=== PATIENT | male | born 1985 | race Caucasian/White ===

== ENCOUNTER 2016-04-19 15:47 | Emergency (ER) | payer SELFPAY ==
--- NOTE | 2016-04-19 16:09 | ER Document Report ---
ED Medical Screen (RME) - General Stated Complaint: ALCOHOL WITHDRAW Time seen by provider: 16:04 Notes: Patient sent to the emergency room from a local urgent care for further evaluation of withdrawal from alcohol. Patient states his last drink was one malt beverage yesterday. Patient is having shakiness, and has a headache. Patient complains of nausea, no vomiting. I have greeted and performed a rapid initial assessment of this patient. A comprehensive ED assessment and evaluation of the patient, analysis of test results and completion of the medical decision making process will be conducted by additional ED providers. TRAVEL OUTSIDE OF THE [place] IN LAST 30 DAYS: No - Related Data Allergies/Adverse Reactions: No Known Allergies Allergy (Verified 04/19/16 16:08) Past Medical History - Immunizations Hx Diphtheria, Pertussis, Tetanus Vaccination: No Physical Exam - Cardiovascular Rhythm: Regular Heart sounds: Normal auscultation
--- NOTE | 2016-04-19 16:55 | ER Document Report ---
ED General - General Mode of Arrival: Ambulatory Information source: Patient TRAVEL OUTSIDE OF THE [place] IN LAST 30 DAYS: No - HPI Onset: Other - see above Quality of pain: No pain Severity: None Associated symptoms: None Recently seen / treated by doctor: Yes <BAKARI GREENWOOD - Last Filed: 04/19/16 19:21> <RICKABRAHAM URSULA - Last Filed: 04/19/16 22:55> - General Chief Complaint: Alcohol Withdrawl Stated Complaint: ALCOHOL WITHDRAW Notes: Patient is a 31-year-old male who is here for "medical clearance". Patient states that his PCP is setting him up with outpatient detox or alcohol abuse however he instructed the patient to come to the emergency department for "labs " for clearance for placement. Patient states he has tried to stop "cold turkey " in the past and he experienced withdrawals. Patient states that in early March he stopped drinking as heavily as he used to and he would "take a few shots" if he felt withdrawal symptoms beginning. Patient states last night he "passed out" and woke up on the floor. Patient denies any incontinence during this episode. Patient denies any seizures in the past during his withdrawals or homicidal/suicidal ideation. (BAKARI GREENWOOD) - Related Data Allergies/Adverse Reactions: No Known Allergies Allergy (Verified 04/19/16 16:08) Past Medical History - General Information source: Patient - Social History Smoking Status: Current Every Day Smoker Cigarette use (# per day): Yes Chew tobacco use (# tins/day): No Frequency of alcohol use: Heavy Drug Abuse: None Lives with: Family Family History: Reviewed & Not Pertinent Patient has suicidal ideation: No Patient has homicidal ideation: No - Medical History Medical History: Negative Surgical Hx: Negative - Immunizations Hx Diphtheria, Pertussis, Tetanus Vaccination: No <BAKARI GREENWOOD - Last Filed: 04/19/16 19:21> Review of Systems - Review of Systems Constitutional: No symptoms reported EENT: No symptoms reported Cardiovascular: No symptoms reported Respiratory: No symptoms reported Gastrointestinal: No symptoms reported Genitourinary: No symptoms reported Male Genitourinary: No symptoms reported Musculoskeletal: No symptoms reported Skin: No symptoms reported Hematologic/Lymphatic: No symptoms reported Neurological/Psychological: See HPI, Other - alcohol abuse -: Yes All other systems reviewed and negative <BAKARI GREENWOOD - Last Filed: 04/19/16 19:21> Course - Laboratory Result Diagrams: 04/19/16 17:15 04/19/16 17:15 <BAKARI GREENWOOD - Last Filed: 04/19/16 19:21> - Laboratory Result Diagrams: 04/19/16 17:15 04/19/16 17:15 <ABRAHAM CABRERA - Last Filed: 04/19/16 22:55> - Re-evaluation Re-evalutation: 04/19/16 Patient is not in any active alcohol withdrawal. Patient is a primary doctor recommends outpatient and just wanted the patient have blood work and urine done here. Patient appears well otherwise. He is to follow-up with his doctor as instructed. Will be given a prescription for Valium for alcohol withdrawal symptoms. Stable for discharge. Return immediately for any worsening or concerning symptoms. (ABRAHAM CABRERA) - Vital Signs Vital signs: Temp Pulse Resp BP Pulse Ox 98.6 F 77 18 145/86 H 98 04/19/16 20:00 04/19/16 20:00 04/19/16 20:00 04/19/16 20:00 04/19/16 20:00 - Laboratory Laboratory results interpreted by me: 04/19/16 04/19/16 04/19/16 17:15 17:15 18:40 RBC 4.34 L MCV 99 H MCH 34.4 H RDW 15.4 H Plt Count 140 L Calcium 10.5 H Urine Ketones TRACE H Salicylates < 1.0 L Acetaminophen < 10 L Discharge <BAKARI GREENWOOD - Last Filed: 04/19/16 19:21> <ABRAHAM CABRERA - Last Filed: 04/19/16 22:55> - Discharge Clinical Impression: Alcohol abuse Withdrawal symptoms, alcohol Qualifiers: Complication of substance-induced condition: uncomplicated Qualified Code(s): F10.230 - Alcohol dependence with withdrawal, uncomplicated Condition: Stable Disposition: HOME, SELF-CARE Instructions: Alcohol Withdrawl ([facility]), Chronic Alcoholism ([facility]) Additional Instructions: Please follow-up with your doctor in the morning. Please return if you have any further concerns or symptoms. Prescriptions: Diazepam [Valium 2 mg Tablet] 2 mg PO TIDP PRN #15 tablet PRN Reason: Scribe Attestation: 04/19/16 22:54 I personally performed the services described in the documentation, reviewed and edited the documentation which was dictated to the scribe in my presence, and it accurately records my words and actions. (ABRAHAM CABRERA) Scribe Documentation - Scribe Written by Hu:: Hu Marmolejo, 04/19/2016 193 acting as scribe for :: Rick <BAKARI GREENWOOD - Last Filed: 04/19/16 19:21>
[2016-04-19] MEDS ORDERED: LORAZEPAM 1 MG TABLET PO ONE (17:28)
[2016-04-19 17:34] LABS: ABSOLUTE EOSINOPHILS # (AUTO) 0.1 10^3/uL (0.0-0.6); ABSOLUTE LYMPHOCYTES (AUTO) 1.2 10^3/uL (0.5-4.7); ABSOLUTE MONOCYTES (AUTO) 0.7 10^3/uL (0.1-1.4); ABSOLUTE NEUT (AUTO) 7.1 10^3/uL (1.7-8.2); BASOPHILS % (AUTO) 0.5 % (0-2); EOSINOPHILS % (AUTO) 0.9 % (0-6); HEMOGLOBIN 14.9 g/dL (13.5-17.0); HGB HCT DIFFERENCE 1.7; LYMPHOCYTES % (AUTO) 13.4 % (13-45); MEAN CORPUSCULAR HEMOGLOBIN 34.4 pg (27.0-33.4); MEAN CORPUSCULAR HGB CONC 34.7 g/dL (32.0-36.0); MEAN CORPUSCULAR VOLUME 99 fl (80-97); MONOCYTES % (AUTO) 7.3 % (3-13); RED BLOOD COUNT 4.34 10^6/uL (4.35-5.55); RED CELL DISTRIBUTION WIDTH 15.4 % (11.5-14.0); SEGMENTED NEUTROPHILS % (AUTO) 77.9 % (42-78); WHITE BLOOD COUNT 9.1 10^3/uL (4.0-10.5)
[2016-04-19 17:45] LABS: ALANINE AMINOTRANSFERASE 37 U/L (21-72); ALBUMIN 4.8 g/dL (3.5-5.0); ALKALINE PHOSPHATASE 78 U/L (38-126); ANION GAP 14 (5-19); ASPARTATE AMINO TRANSFERASE 29 U/L (17-59); BLOOD UREA NITROGEN 8 mg/dL (7-20); CALCIUM 10.5 mg/dL (8.4-10.2); CARBON DIOXIDE 25 mmol/L (22-30); CHLORIDE 102 mmol/L (98-107); CREATININE RESULT 0.76 mg/dL (0.52-1.25); GLUCOSE 96 mg/dL (75-110); LIPASE 153.9 U/L (23-300); POTASSIUM 4.1 mmol/L (3.6-5.0); SODIUM 140.5 mmol/L (137-145); TOTAL PROTEIN 8.1 g/dL (6.3-8.2)
[2016-04-19 17:46] LABS: ALCOHOL < 10 mg/dL (NONE DETECTED)
[2016-04-19 19:18] LABS: APPEARANCE,URINE CLEAR; BILIRUBIN,URINE NEGATIVE (NEGATIVE); GLUCOSE, URINE NEGATIVE (NEGATIVE); KETONES,URINE TRACE mg/dL (NEGATIVE); LEUKOCYTE ESTERASE,URINE NEGATIVE (NEGATIVE); NITRITE,URINE NEGATIVE (NEGATIVE); PROTEIN,URINE NEGATIVE (NEGATIVE); URINE SPECIFIC GRAVITY 1.008; UROBILINOGEN,URINE NEGATIVE mg/dL (<2.0)
[2016-04-19 19:36] LABS: URINE BARBITURATES SCREEN NEGATIVE; URINE METHADONE SCREEN NEGATIVE; URINE OPIATES LOW NEGATIVE; URINE PHENCYCLIDINE SCREEN NEGATIVE
[2016-04-19 20:46] VITALS: BP 145/86
== END 2016-04-19 20:00 | disposition home or self-care (01) ==
LOC: ER 15:47
DX: F10.230 Alcohol dependence with withdrawal, uncomplicated (principal); F17.210 Nicotine dependence, cigarettes, uncomplicated
CPT/HCPCS: 36415; 80053; 80307; 81001; 83690; 85025; 99284

== ENCOUNTER 2017-02-17 22:00 | Emergency (ER) | payer SELFPAY ==
[2017-02-17] MEDS ORDERED: NORMAL SALINE 1000 ML 1,000 ML IV ONE (22:19)
[2017-02-17] MEDS ORDERED: FAMOTIDINE 20 MG TABLET PO ONE (22:19)
[2017-02-17] MEDS ORDERED: ONDANSETRON HCL INJ/PF 4 MG/2 ML SDV IV ONE (22:19)
[2017-02-17] MEDS ORDERED: MAG HYDROX/AL HYDROX/SIMETH SUSP 30 ML UDCUP PO ONE (22:20)
[2017-02-17] MEDS ORDERED: LIDOCAINE 2% VISCOUS SOLN 20 ML UDCUP PO ONE (22:20)
[2017-02-17] MEDS ORDERED: METOCLOPRAMIDE HCL ORAL SOLN 10 MG/10 ML UDCUP PO ONE (22:20)
[2017-02-17 22:39] LABS: ABSOLUTE LYMPHOCYTES (AUTO) 0.9 10^3/uL (0.5-4.7); ABSOLUTE MONOCYTES (AUTO) 0.4 10^3/uL (0.1-1.4); ABSOLUTE NEUT (AUTO) 3.8 10^3/uL (1.7-8.2); BASOPHILS % (AUTO) 0.6 % (0-2); EOSINOPHILS % (AUTO) 0.3 % (0-6); HEMATOCRIT 43.9 % (37.9-51.0); HEMOGLOBIN 15.5 g/dL (13.5-17.0); LYMPHOCYTES % (AUTO) 17.1 % (13-45); MEAN CORPUSCULAR HEMOGLOBIN 35.3 pg (27.0-33.4); MEAN CORPUSCULAR HGB CONC 35.2 g/dL (32.0-36.0); MEAN CORPUSCULAR VOLUME 100 fl (80-97); MONOCYTES % (AUTO) 8.3 % (3-13); PLATELET COUNT 161 10^3/uL (150-450); RED BLOOD COUNT 4.38 10^6/uL (4.35-5.55); RED CELL DISTRIBUTION WIDTH 15.5 % (11.5-14.0); SEGMENTED NEUTROPHILS % (AUTO) 73.7 % (42-78); TOTAL CELLS COUNTED % (AUTO) 100 %; WHITE BLOOD COUNT 5.2 10^3/uL (4.0-10.5)
[2017-02-17 22:53] LABS: ALANINE AMINOTRANSFERASE 19 U/L (21-72); ALCOHOL 35 mg/dL (NONE DETECTED); ALKALINE PHOSPHATASE 78 U/L (38-126); ANION GAP 18 (5-19); ASPARTATE AMINO TRANSFERASE 36 U/L (17-59); BILIRUBIN,DIRECT 0.3 mg/dL (0.0-0.4); BILIRUBIN,TOTAL 0.9 mg/dL (0.2-1.3); BLOOD UREA NITROGEN 7 mg/dL (7-20); CALCIUM 9.8 mg/dL (8.4-10.2); CARBON DIOXIDE 24 mmol/L (22-30); CHLORIDE 99 mmol/L (98-107); GLUCOSE 97 mg/dL (75-110); LIPASE 86.7 U/L (23-300); POTASSIUM 3.6 mmol/L (3.6-5.0); SODIUM 140.7 mmol/L (137-145); TOTAL PROTEIN 8.4 g/dL (6.3-8.2)
[2017-02-17] MEDS ORDERED: DIAZEPAM INJ 10 MG/2 ML DISP.SYRIN ONE (23:05)
[2017-02-17] MEDS ORDERED: DIAZEPAM INJ 10 MG/2 ML DISP.SYRIN IV ONE (23:13)
[2017-02-18] MEDS ORDERED: GABAPENTIN 300 MG CAPSULE PO ONE (00:07)
[2017-02-18] MEDS ORDERED: ONDANSETRON ODT 4 MG TAB (6 TAB/ER DISP) PO PRN (00:11)
--- NOTE | 2017-02-18 00:12 | ER Document Report ---
ED General - General Chief Complaint: ETOH Abuse Stated Complaint: SHAKING,NAUSEA Time Seen by Provider: 02/17/17 22:18 Notes: Patient is a 31-year-old male without past medical history, alcohol dependent, who presents with symptoms of alcohol withdrawal. He discontinued alcohol approximately 12-20 hours ago and states within the last 8 hours he has had progressively worsening shakiness, lightheadedness, sweating, nausea and vomiting. He reports that he has been drinking heavily for the past 1 week and decided to stop yesterday with encouragement of his family. He has withdrawn from alcohol many times in the past and has never had an alcohol withdrawal seizure or delirium tremens. On assessment patient states he feels overall miserable. Nothing seems to improve or worsen his symptoms. He states this feels identical to prior episodes of alcohol withdrawal that he has had in the past. He denies any focal weakness, numbness, abdominal pain, chest pain or shortness of breath. TRAVEL OUTSIDE OF THE [place] IN LAST 30 DAYS: No - Related Data Allergies/Adverse Reactions: No Known Allergies Allergy (Verified 04/19/16 16:08) Past Medical History - General Information source: Patient - Social History Smoking Status: Never Smoker Frequency of alcohol use: Heavy Drug Abuse: None Lives with: Family Family History: Reviewed & Not Pertinent Patient has suicidal ideation: No Patient has homicidal ideation: No Renal/ Medical History: Denies: Hx Peritoneal Dialysis - Immunizations Hx Diphtheria, Pertussis, Tetanus Vaccination: No Review of Systems - Review of Systems Notes: Constitutional: Negative for fever. HENT: Negative for sore throat. Eyes: Negative for visual changes. Cardiovascular: Negative for chest pain. Respiratory: Negative for shortness of breath. Gastrointestinal: Negative for abdominal pain, positive for vomiting Genitourinary: Negative for dysuria. Musculoskeletal: Negative for back pain. Skin: Negative for rash. Neurological: Negative for headaches, weakness or numbness. 10 point ROS negative except as marked above and in HPI. Physical Exam - Vital signs Vitals: Temp Pulse Resp BP Pulse Ox 98.4 F 115 H 24 H 174/102 H 99 02/17/17 22:06 02/17/17 22:06 02/17/17 22:06 02/17/17 22:06 02/17/17 22:06 Interpretation: Tachycardic Notes: PHYSICAL EXAMINATION: GENERAL: Appears somewhat ill but in no acute distress HEAD: Atraumatic, normocephalic. EYES: Pupils equal round and reactive to light, extraocular movements intact, sclera anicteric, conjunctiva are normal. ENT: nares patent, oropharynx clear without exudates. Moderately dry mucous membranes. NECK: Normal range of motion, supple without lymphadenopathy LUNGS: Breath sounds clear to auscultation bilaterally and equal. No wheezes rales or rhonchi. HEART: Regular tachycardia without murmurs ABDOMEN: Soft, nontender, normoactive bowel sounds. No guarding, no rebound. No masses appreciated. EXTREMITIES: Normal range of motion, no pitting or edema. No cyanosis. NEUROLOGICAL: No focal neurological deficits. Moves all extremities spontaneously and on command. PSYCH: Somewhat anxious SKIN: Warm, Dry, normal turgor, no rashes or lesions noted. Course - Re-evaluation Re-evalutation: 02/18/17 00:07 Patient presents with concerns of symptoms of alcohol withdrawal after discontinuing use of alcohol approximately 12-15 hours ago. He has no prior history of delirium tremens or seizures in withdrawal. He is mildly tachycardic and hypertensive at time of presentation which improved after administration of diazepam. He did also receive IV fluids. Nausea vomiting controlled with Zofran without difficulty. I have an extensive conversation with the patient and his parents at the bedside about his long-term alcohol abuse and resources for rehab. Patient is not a candidate for chlordiazepoxide taper as an outpatient as he cannot be continuously monitored and parents report that he is very high risk to relapse. Physical examination is unremarkable with exception of some mild tachycardia and dehydration. Laboratories are unremarkable without any evidence of an acute pancreatitis, acute alcoholic hepatitis. Patient has no focal abdominal tenderness on examination to suggest an acute intra-abdominal pathology. At this time will discharge with return precautions and follow-up recommendations. Verbal discharge instructions given a the bedside and opportunity for questions given. Medication warnings reviewed. Patient is in agreement with this plan and has verbalized understanding of return precautions and the need for primary care follow-up in the next 24-72 hours. - Vital Signs Vital signs: Temp Pulse Resp BP Pulse Ox 98.4 F 115 H 18 153/92 H 97 02/17/17 22:06 02/17/17 22:06 02/18/17 00:16 02/18/17 00:16 02/18/17 00:16 - Laboratory Result Diagrams: 02/17/17 22:24 02/17/17 22:24 Laboratory results interpreted by me: 02/17/17 02/17/17 22:24 22:24 MCV 100 H MCH 35.3 H RDW 15.5 H ALT 19 L Total Protein 8.4 H Discharge - Discharge Clinical Impression: Alcohol withdrawal Qualifiers: Complication of substance-induced condition: uncomplicated Qualified Code(s): F10.230 - Alcohol dependence with withdrawal, uncomplicated Nausea and vomiting Qualifiers: Vomiting type: unspecified Vomiting Intractability: non-intractable Qualified Code(s): R11.2 - Nausea with vomiting, unspecified Condition: Fair Disposition: HOME, SELF-CARE Additional Instructions: You have been sent home on medication to help withdraw from alcohol. Take gabapentin 300 mg 3 times daily for the next 10 days. This will not completely remove all your symptoms from withdrawal should make it so that your symptoms are more manageable. You need to return to the emergency room immediately if you pass out, or vomiting so severely your unable to keep anything down, start hallucinate, or have any other symptoms that are of concern to you. You need to go to an inpatient program and should speak with your primary care doctor regarding these resources. Prescriptions: Gabapentin 300 mg PO TID #30 capsule
[2017-02-18 00:17] VITALS: BP 153/92
== END 2017-02-18 00:23 | disposition home or self-care (01) ==
LOC: ER 22:00
DX: F10.230 Alcohol dependence with withdrawal, uncomplicated (principal); R11.2 Nausea with vomiting, unspecified; E86.0 Dehydration; R00.0 Tachycardia, unspecified
CPT/HCPCS: 99284; 96361; 96374; 96375; 36415; 80307; 83690; 85025; 80053; J3360; J3490; J2405; J7030

== ENCOUNTER 2017-04-11 14:46 | Emergency (ER) | payer SELFPAY ==
[2017-04-11] MEDS ORDERED: LORAZEPAM INJ 2 MG/1 ML VIAL IV ONE (15:11)
[2017-04-11] MEDS ORDERED: THIAMINE HCL 100 MG, FOLIC ACID 1 MG in NORMAL SALINE 250 ML IV ONE (15:11)
[2017-04-11] MEDS ORDERED: NORMAL SALINE 1000 ML 1,000 ML IV ONE (15:11)
--- NOTE | 2017-04-11 15:21 | ER Document Report ---
ED Medical Screen (RME) - General Chief Complaint: Alcohol Withdrawl Stated Complaint: SHAKING,NAUSEA Time Seen by Provider: 04/11/17 15:10 Mode of Arrival: Ambulatory Information source: Patient TRAVEL OUTSIDE OF THE [place] IN LAST 30 DAYS: No - HPI Patient complains to provider of: etoh withdrawal Onset: This morning - pt states he has been drinking heavily for the past several days and last drink was this am -- has been having shaking and "not feeling well" since - Related Data Allergies/Adverse Reactions: No Known Allergies Allergy (Verified 04/11/17 14:50) Past Medical History Renal/ Medical History: Denies: Hx Peritoneal Dialysis - Immunizations Hx Diphtheria, Pertussis, Tetanus Vaccination: No Physical Exam - Vital signs Vitals: Temp Pulse Resp BP Pulse Ox 99.1 F 98 22 H 153/91 H 99 04/11/17 15:03 04/11/17 15:03 04/11/17 15:03 04/11/17 15:03 04/11/17 15:03 Course - Vital Signs Vital signs: Temp Pulse Resp BP Pulse Ox 99.1 F 98 22 H 153/91 H 99 04/11/17 15:03 04/11/17 15:03 04/11/17 15:03 04/11/17 15:03 04/11/17 15:03
[2017-04-11] MEDS ORDERED: FOLIC ACID INJ 5 MG/1 ML 10 ML VIAL ONE (15:36)
[2017-04-11] MEDS ORDERED: THIAMINE HCL INJ 200 MG/2 ML VIAL ONE (15:36)
[2017-04-11 15:47] LABS: ABSOLUTE LYMPHOCYTES (AUTO) 2.1 10^3/uL (0.5-4.7); ABSOLUTE MONOCYTES (AUTO) 0.5 10^3/uL (0.1-1.4); ABSOLUTE NEUT (AUTO) 6.7 10^3/uL (1.7-8.2); BASOPHILS % (AUTO) 0.5 % (0-2); EOSINOPHILS % (AUTO) 0.2 % (0-6); HEMATOCRIT 45.5 % (37.9-51.0); HEMOGLOBIN 15.8 g/dL (13.5-17.0); LYMPHOCYTES % (AUTO) 22.2 % (13-45); MEAN CORPUSCULAR HEMOGLOBIN 33.7 pg (27.0-33.4); MEAN CORPUSCULAR HGB CONC 34.8 g/dL (32.0-36.0); MEAN CORPUSCULAR VOLUME 97 fl (80-97); MONOCYTES % (AUTO) 5.7 % (3-13); PLATELET COUNT 223 10^3/uL (150-450); RED BLOOD COUNT 4.68 10^6/uL (4.35-5.55); RED CELL DISTRIBUTION WIDTH 15.2 % (11.5-14.0); SEGMENTED NEUTROPHILS % (AUTO) 71.4 % (42-78); TOTAL CELLS COUNTED % (AUTO) 100 %; WHITE BLOOD COUNT 9.4 10^3/uL (4.0-10.5)
[2017-04-11 16:10] LABS: ALANINE AMINOTRANSFERASE 41 U/L (21-72); ALBUMIN 5.3 g/dL (3.5-5.0); ALCOHOL 182 mg/dL (NONE DETECTED); ALKALINE PHOSPHATASE 83 U/L (38-126); ASPARTATE AMINO TRANSFERASE 59 U/L (17-59); BILIRUBIN,DIRECT 0.5 mg/dL (0.0-0.4); BILIRUBIN,TOTAL 0.8 mg/dL (0.2-1.3); BLOOD UREA NITROGEN 9 mg/dL (7-20); CALCIUM 9.9 mg/dL (8.4-10.2); CARBON DIOXIDE 20 mmol/L (22-30); CHLORIDE 95 mmol/L (98-107); CREATINE KINASE 171 U/L (55-170); GLUCOSE 144 mg/dL (75-110); POTASSIUM 3.9 mmol/L (3.6-5.0); SODIUM 139.9 mmol/L (137-145); TOTAL PROTEIN 8.9 g/dL (6.3-8.2)
[2017-04-11 16:11] LABS: ANION GAP 25 (5-19)
[2017-04-11 16:21] LABS: CREATINE KINASE MB 0.34 ng/mL (<4.55)
[2017-04-11 16:27] LABS: TROPONIN I < 0.012 ng/mL
--- NOTE | 2017-04-11 17:27 | ER Document Report ---
ED General - General Chief Complaint: Alcohol Withdrawl Stated Complaint: SHAKING,NAUSEA Time Seen by Provider: 04/11/17 15:10 Mode of Arrival: Ambulatory Information source: Patient Notes: 32-year-old male presents with concerns for alcohol withdrawal, patient notes he drinks 1/5 of vodka a day, patient notes he wants to get detox but last drank this morning, patient notes he has not had a drink since and feels that he is getting shaky. Patient notes he has since sobered and wishes to have medication for his withdrawals TRAVEL OUTSIDE OF THE [place] IN LAST 30 DAYS: No - HPI Onset: Other Onset/Duration: Persistent Quality of pain: Other Severity: Mild Pain Level: 1 Associated symptoms: Other - Shaking Exacerbated by: Other Relieved by: Other - Alcohol Similar symptoms previously: No - Patient has never tried to quit Recently seen / treated by doctor: No - Related Data Allergies/Adverse Reactions: No Known Allergies Allergy (Verified 04/11/17 14:50) Past Medical History - General Information source: Patient - Social History Smoking Status: Current Every Day Smoker Cigarette use (# per day): Yes Chew tobacco use (# tins/day): No Smoking Education Provided: No Frequency of alcohol use: Heavy Drug Abuse: None Family History: Reviewed & Not Pertinent Patient has suicidal ideation: No Patient has homicidal ideation: No Renal/ Medical History: Denies: Hx Peritoneal Dialysis - Immunizations Hx Diphtheria, Pertussis, Tetanus Vaccination: No Review of Systems - Review of Systems Notes: REVIEW OF SYSTEMS: CONSTITUTIONAL : Denies fever, chills, or sweats. Denies recent illness. EENT: Denies eye, ear, throat, or mouth pain or symptoms. Denies nasal or sinus congestion or discharge. Denies throat, tongue, or mouth swelling or difficulty swallowing. CARDIOVASCULAR: Denies chest pain. Denies palpitations or racing or irregular heart beat. Denies ankle edema. RESPIRATORY: Denies cough, cold, or chest congestion. Denies shortness of breath, difficulty breathing, or wheezing. GASTROINTESTINAL: Denies abdominal pain or distention. Denies nausea, vomiting , or diarrhea. Denies blood in vomitus, stools, or per rectum. Denies black, tarry stools. Denies constipation. GENITOURINARY: Denies difficulty urinating, painful urination, burning, frequency, blood in urine, or discharge. MUSCULOSKELETAL: Denies back or neck pain or stiffness. Denies joint pain or swelling. SKIN: Denies rash, lesions or sores. HEMATOLOGIC : Denies easy bruising or bleeding. LYMPHATIC: Denies swollen, enlarged glands. NEUROLOGICAL: Denies confusion or altered mental status. Denies passing out or loss of consciousness. Denies dizziness or lightheadedness. Denies headache. Denies weakness or paralysis or loss of use of either side. Denies problems with gait or speech. Denies sensory loss, numbness, or tingling. Denies seizures. PSYCHIATRIC: Admits to anxiety withdrawal symptoms ALL OTHER SYSTEMS REVIEWED AND NEGATIVE. Dictation was performed using [employer] voice recognition software PHYSICAL EXAMINATION: GENERAL: Well-appearing, well-nourished and in no acute distress. HEAD: Atraumatic, normocephalic. EYES: Pupils equal round and reactive to light, extraocular movements intact, sclera anicteric, conjunctiva are normal. ENT: Nares patent, oropharynx clear without exudates. Moist mucous membranes. NECK: Normal range of motion, supple without lymphadenopathy LUNGS: Breath sounds clear to auscultation bilaterally and equal. No wheezes rales or rhonchi. HEART: Regular rate and rhythm without murmurs ABDOMEN: Soft, nontender, nondistended abdomen. No guarding, no rebound. No masses appreciated. Musculoskeletal: Normal range of motion, no pitting or edema. No cyanosis. NEUROLOGICAL: Cranial nerves grossly intact. Normal speech, normal gait. Normal sensory, motor exams PSYCH: Normal mood, normal affect. SKIN: Warm, Dry, normal turgor, no rashes or lesions noted. Physical Exam - Vital signs Vitals: Temp Pulse Resp BP Pulse Ox 99.1 F 98 22 H 153/91 H 99 04/11/17 15:03 04/11/17 15:03 04/11/17 15:03 04/11/17 15:03 04/11/17 15:03 Course - Re-evaluation Re-evalutation: 04/11/17 19:25 Patient is clinically sober, his alcohol level was noted to be 0.18 which I believe is much lower than his baseline, he states he has not drank since this morning and has withdrawal-like symptoms, I will treat him for his withdrawals, he has never seized, he has been given resources for alcohol rehab. I have explained to the patient very thoroughly since he is sober at this time I believe he is stable for discharge however if he were to have difficulty ambulating or any other concerns and I would keep him in the hospital, patient verbalizes and expresses his ability to ambulate has good motor and neurological function and is otherwise at what appears to be his own baseline After performing a Medical Screening Examination, I estimate there is LOW risk for INTRACRANIAL HEMORRHAGE, ISCHEMIC CVA, MALIGNANT DYSRHYTHMIA, ACUTE CORONARY SYNDROME, MENINGITIS, PULMONARY EMBOLISM, or SEPSIS thus I consider the discharge disposition reasonable. I have reevaluated this patient multiple times and no significant life threatening changes are noted. The patient and I have discussed the diagnosis and risks, and we agree with discharging home with close follow-up with the understanding that symptoms and presentations can change. We also discussed returning to the Emergency Department immediately if new or worsening symptoms occur. We have discussed the symptoms which are most concerning (e.g., changing or worsening pain, weakness, vomiting, fever) that necessitate immediate return. - Vital Signs Vital signs: Temp Pulse Resp BP Pulse Ox 99.1 F 98 16 146/90 H 99 04/11/17 15:03 04/11/17 15:03 04/11/17 17:41 04/11/17 17:42 04/11/17 17:42 - Laboratory Result Diagrams: 04/11/17 15:27 04/11/17 15:27 Laboratory results interpreted by me: 04/11/17 04/11/17 15:27 15:27 MCH 33.7 H RDW 15.2 H Chloride 95 L Carbon Dioxide 20 L Anion Gap 25 H Glucose 144 H Direct Bilirubin 0.5 H Creatine Kinase 171 H Total Protein 8.9 H Albumin 5.3 H Discharge - Discharge Clinical Impression: Chronic alcohol abuse Alcohol withdrawal Qualifiers: Complication of substance-induced condition: uncomplicated Qualified Code(s): F10.230 - Alcohol dependence with withdrawal, uncomplicated Condition: Stable Disposition: HOME, SELF-CARE Instructions: Alcohol Withdrawl ([facility]), Chronic Alcoholism ([facility]) Additional Instructions: Please follow-up with the care plan provided to you by a mental health team for further evaluation care Prescriptions: Chlordiazepoxide HCl [Librium 5 mg Capsule] 1 cap PO QID #20 cap
[2017-04-11 17:48] VITALS: BP 146/90
--- NOTE | 2017-04-11 19:00 | EKG REPORT ---
SEVERITY:- BORDERLINE ECG - SINUS TACHYCARDIA PROBABLE LEFT ATRIAL ABNORMALITY : Confirmed by: Adam Lobo MD 11-Apr-2017 18:58:58
== END 2017-04-11 17:48 | disposition home or self-care (01) ==
LOC: ER 14:46
DX: F10.230 Alcohol dependence with withdrawal, uncomplicated (principal); R11.0 Nausea; F17.210 Nicotine dependence, cigarettes, uncomplicated
CPT/HCPCS: 93005; 99285; 96361; 96374; 36415; 82553; 80307; 82550; 85025; 80053; 84484; 93010; J3490; J2060; J3411; J7030; J7050

== ENCOUNTER 2017-08-06 21:15 | Emergency (ER) | payer SELFPAY ==
[2017-08-06] MEDS ORDERED: NORMAL SALINE 1000 ML 1,000 ML IV ONE (22:07)
[2017-08-06] MEDS ORDERED: DIPHENHYDRAMINE HCL 50 MG/ML VIAL IV ONE (22:07)
--- NOTE | 2017-08-06 22:14 | ER Document Report ---
ED General - General Mode of Arrival: Ambulatory Information source: Patient TRAVEL OUTSIDE OF THE U.S. IN LAST 30 DAYS: No <SHERWIN WALTER - Last Filed: 08/06/17 23:12> <WOO CHAMBERS - Last Filed: 08/07/17 03:53> - General Chief Complaint: Alcohol Withdrawl Stated Complaint: ARM NUMBNESS Time Seen by Provider: 08/06/17 21:56 Notes: Patient is a 32 year old male presenting to the emergency department complaining of alcohol withdrawal. Patient states he normally drinks a 5th of liquor daily further stating his last drink was 2 days ago. He states he has attempted to quit in the past stating he went to [place] in March 2017 and stopped heavily drinking for approximately 1 month. Patient's associated symptoms include nausea, vomiting, diaphoresis, shaking of left arm, and left arm numbness. Patient denies any alcohol use today. (SHERWIN WALTER) - Related Data Allergies/Adverse Reactions: No Known Allergies Allergy (Verified 04/11/17 14:50) Past Medical History - General Information source: Patient - Social History Smoking Status: Current Every Day Smoker Cigarette use (# per day): Yes - 1 pack a day Chew tobacco use (# tins/day): No Frequency of alcohol use: Heavy Drug Abuse: None Occupation: Unemployed Family History: Reviewed & Not Pertinent Patient has suicidal ideation: No Patient has homicidal ideation: No - Immunizations Hx Diphtheria, Pertussis, Tetanus Vaccination: No <SHERWIN WALTER - Last Filed: 08/06/17 23:12> Review of Systems - Review of Systems Constitutional: See HPI, Diaphoresis EENT: No symptoms reported Cardiovascular: No symptoms reported Respiratory: No symptoms reported Gastrointestinal: See HPI, Nausea, Vomiting Genitourinary: No symptoms reported Male Genitourinary: No symptoms reported Musculoskeletal: See HPI Skin: No symptoms reported Hematologic/Lymphatic: No symptoms reported Neurological/Psychological: No symptoms reported -: Yes All other systems reviewed and negative <SHERWIN WALTER - Last Filed: 08/06/17 23:12> Physical Exam - General General appearance: Alert, Other - Diaphoretic - HEENT Head: Normocephalic, Atraumatic, Open wounds Conjunctiva: Normal Extraocular movements intact: Yes Pupils: PERRL Neck: Normal - Respiratory Respiratory status: No respiratory distress, Other - Hyperventilating Chest status: Nontender Breath sounds: Normal Chest palpation: Normal - Cardiovascular Rhythm: Regular Heart sounds: Normal auscultation Murmur: No Friction rub: No Gallop: None auscultated - Abdominal Inspection: Normal Distension: No distension Bowel sounds: Normal Tenderness: Nontender Organomegaly: No organomegaly - Back Back: Normal - Extremities General upper extremity: Normal ROM General lower extremity: Normal ROM Hand: Other - Carpal spasms of right hand when blood pressure cuff is placed and tightening. - Neurological Neuro grossly intact: Yes Cognition: Normal Orientation: AAOx4 [place] Coma Scale Eye Opening: Spontaneous [place] Coma Scale Verbal: Oriented [place] Coma Scale Motor: Obeys Commands [place] Coma Scale Total: 15 Speech: Normal - Psychological Associated symptoms: Normal affect, Normal mood - Skin Skin Temperature: Warm Skin Moisture: Dry <SHREWIN WALTER - Last Filed: 08/06/17 23:12> - Vital signs Vitals: Temp Pulse Resp BP Pulse Ox 98.9 F 86 32 H 155/91 H 99 08/06/17 21:29 08/06/17 21:29 08/06/17 21:29 08/06/17 21:29 08/06/17 21:29 Course - Laboratory Result Diagrams: 08/06/17 22:25 08/06/17 22:25 <SHERWIN WALTER - Last Filed: 08/06/17 23:12> - Laboratory Result Diagrams: 08/06/17 22:25 08/06/17 22:25 - EKG Interpretation by Ma EKG shows normal: Sinus rhythm, [place], Intervals, QRS Complexes, ST-T Waves Rate: Normal - 64 Rhythm: NSR [place]/QRS: RBBB P Waves: LAE When compared to previous EKG there are: No significant change <WOO CHAMBERS - Last Filed: 08/07/17 03:53> - Re-evaluation Re-evalutation: 08/07/17 03:35 The patient is feeling much better at this time. He is no longer having carpal spasm. There is another liter of fluids ordered about 45 minutes ago, hopefully it will be started soon and I will be able to discharge patient home soon. (WOO CHAMBERS) - Vital Signs Vital signs: Temp Pulse Resp BP Pulse Ox 98.9 F 86 18 139/79 H 94 08/06/17 21:29 08/06/17 21:29 08/07/17 02:02 08/07/17 01:01 08/07/17 02:02 - Laboratory Laboratory results interpreted by me: 08/06/17 08/06/17 08/06/17 22:25 22:25 22:25 WBC 10.6 H Hgb 17.4 H Seg Neutrophils % 78.1 H Absolute Neutrophils 8.3 H Chloride 88 L Anion Gap 23 H Calcium 10.9 H Magnesium 1.4 L Total Bilirubin 2.3 H Direct Bilirubin 0.6 H Alkaline Phosphatase 129 H Total Protein 9.3 H Albumin 5.4 H Urine Protein Urine Glucose (UA) Urine Ketones Urine Bilirubin Urine Urobilinogen Salicylates < 1.0 L Acetaminophen < 10 L 08/07/17 02:15 WBC Hgb Seg Neutrophils % Absolute Neutrophils Chloride Anion Gap Calcium Magnesium Total Bilirubin Direct Bilirubin Alkaline Phosphatase Total Protein Albumin Urine Protein >=500 H Urine Glucose (UA) >=500 H Urine Ketones 80 H Urine Bilirubin SMALL H Urine Urobilinogen 4.0 H Salicylates Acetaminophen Discharge <SHERWIN WALTER - Last Filed: 08/06/17 23:12> <WOO CHAMBERS - Last Filed: 08/07/17 03:53> - Discharge Clinical Impression: Dehydration Alcohol withdrawal Qualifiers: Complication of substance-induced condition: with unspecified complication Qualified Code(s): F10.239 - Alcohol dependence with withdrawal, unspecified Condition: Stable Additional Instructions: Alcohol Withdrawal: Your symptoms are caused by alcohol withdrawal. After a period of frequent drinking, the brain and body are changed by the alcohol. When you quit or reduce your drinking, the nervous system becomes unstable. Withdrawal symptoms can start a few hours after your last drink, but sometimes don't begin until a couple of days later. Symptoms can include shakiness, sweating, insomnia, nausea , vomiting, fearfulness, hallucinations, and seizures. In addition to the acute effects of alcohol withdrawal, we often have to deal with the medical effects of alcoholism. These problems often include dehydration, stomach irritation, intestinal bleeding, low blood sugar, liver disease, and pancreas inflammation. Treatment for alcohol withdrawal includes mild sedatives, vitamins, and fluids. You need to be with someone who can help if symptoms become severe. Many patients can withdraw at home. Admission to the hospital or a detox facility may be necessary if withdrawal symptoms are severe and uncontrollable. Abstaining from alcohol is the only effective long-term treatment. If you start drinking again, you will not be able to control yourself after the first drink. Treatment programs are available. In addition, many alcoholics benefit from Alcoholics Anonymous or other support groups available through your counselor or [employer]ology [employer] station. AL-ANON and ALA-TEEN are support groups for friends and family members of an alcoholic. Go to the emergency room if you develop persistent vomiting, severe abdominal pain, fever, shortness of breath, hallucinations, uncontrollable tremors, or seizures. Take medication as prescribed to reduce the withdrawal symptoms for the next couple of days. Drink plenty of fluids over the next few days. Follow-up with [facility] for help with detox programs. RETURN TO THE EMERGENCY ROOM IF ANY NEW OR WORSENING SYMPTOMS. Prescriptions: Clonidine HCl 0.1 mg PO Q8 PRN #10 tablet PRN Reason: Withdrawal Symptoms Referrals: [facility] [Provider Group] - Follow up tomorrow Scribe Attestation: 08/07/17 03:52 I personally performed the services described in the documentation, reviewed and edited the documentation which was dictated to the scribe in my presence, and it accurately records my words and actions. (WOO CHAMBERS) Scribe Documentation - Scribe Written by Hu:: Hu Sharma, 08/06/2017 22:17 acting as scribe for :: Jean <SHERWIN WALTER - Last Filed: 08/06/17 23:12>
--- NOTE | 2017-08-06 22:15 | EKG REPORT ---
SEVERITY:- ABNORMAL ECG - SINUS RHYTHM PROBABLE LEFT ATRIAL ABNORMALITY INCOMPLETE RIGHT BUNDLE BRANCH BLOCK : Confirmed by: Isabelle Acharya 06-Aug-2017 22:15:11
[2017-08-06 22:39] LABS: ABSOLUTE BASOPHILS # (AUTO) 0.1 10^3/uL (0.0-0.2); ABSOLUTE LYMPHOCYTES (AUTO) 1.4 10^3/uL (0.5-4.7); ABSOLUTE MONOCYTES (AUTO) 0.8 10^3/uL (0.1-1.4); ABSOLUTE NEUT (AUTO) 8.3 10^3/uL (1.7-8.2); BASOPHILS % (AUTO) 0.5 % (0-2); EOSINOPHILS % (AUTO) 0.1 % (0-6); HEMATOCRIT 48.7 % (37.9-51.0); HEMOGLOBIN 17.4 g/dL (13.5-17.0); LYMPHOCYTES % (AUTO) 13.6 % (13-45); MEAN CORPUSCULAR HEMOGLOBIN 31.7 pg (27.0-33.4); MEAN CORPUSCULAR HGB CONC 35.8 g/dL (32.0-36.0); MEAN CORPUSCULAR VOLUME 89 fl (80-97); MONOCYTES % (AUTO) 7.7 % (3-13); PLATELET COUNT 226 10^3/uL (150-450); SEGMENTED NEUTROPHILS % (AUTO) 78.1 % (42-78); TOTAL CELLS COUNTED % (AUTO) 100 %; WHITE BLOOD COUNT 10.6 10^3/uL (4.0-10.5)
[2017-08-06 22:56] LABS: ALANINE AMINOTRANSFERASE 52 U/L (21-72); ALBUMIN 5.4 g/dL (3.5-5.0); ALKALINE PHOSPHATASE 129 U/L (38-126); ASPARTATE AMINO TRANSFERASE 51 U/L (17-59); BILIRUBIN,DIRECT 0.6 mg/dL (0.0-0.4); BILIRUBIN,TOTAL 2.3 mg/dL (0.2-1.3); BLOOD UREA NITROGEN 10 mg/dL (7-20); CALCIUM 10.9 mg/dL (8.4-10.2); GLUCOSE 100 mg/dL (75-110); POTASSIUM 3.9 mmol/L (3.6-5.0); TOTAL PROTEIN 9.3 g/dL (6.3-8.2)
[2017-08-06 23:01] LABS: CARBON DIOXIDE 28 mmol/L (22-30); CHLORIDE 88 mmol/L (98-107); SODIUM 138.5 mmol/L (137-145)
[2017-08-06 23:02] LABS: CREATINE KINASE 162 U/L (55-170)
[2017-08-06 23:07] LABS: ACETAMINOPHEN < 10 ug/mL (10-30); ALCOHOL < 10 mg/dL (NONE DETECTED); SALICYLATE < 1.0 mg/dL (2.0-20.0)
[2017-08-06 23:09] LABS: ANION GAP 23 (5-19)
[2017-08-07] MEDS ORDERED: THIAMINE HCL INJ 200 MG/2 ML VIAL IV ONE (00:02)
[2017-08-07] MEDS ORDERED: MAGNESIUM SULFATE/D5W 1 GM/100 ML RTUPB IV ONE (00:03)
[2017-08-07] MEDS ORDERED: DEXTROSE 5%-LACTATED RINGERS 1,000 ML IV ONE (00:03)
[2017-08-07 02:43] LABS: APPEARANCE,URINE SLIGHTLY-CLOUDY; BILIRUBIN,URINE SMALL (NEGATIVE); COLOR,URINE AMBER; GLUCOSE, URINE >=500 mg/dL (NEGATIVE); KETONES,URINE 80 mg/dL (NEGATIVE); LEUKOCYTE ESTERASE,URINE NEGATIVE (NEGATIVE); NITRITE,URINE NEGATIVE (NEGATIVE); PROTEIN,URINE >=500 mg/dL (NEGATIVE); URINE SPECIFIC GRAVITY 1.025
[2017-08-07] MEDS ORDERED: RINGERS SOLUTION,LACTATED 1,000 ML IV ONE (02:47)
[2017-08-07 02:54] LABS: URINE AMPHETAMINES SCREEN NEGATIVE; URINE BARBITURATES SCREEN NEGATIVE; URINE BENZODIAZEPINES SCREEN NEGATIVE; URINE COCAINE SCREEN NEGATIVE; URINE MARIJUANA (THC) SCREEN NEGATIVE; URINE METHADONE SCREEN NEGATIVE; URINE PHENCYCLIDINE SCREEN NEGATIVE
[2017-08-07] MEDS ORDERED: ONDANSETRON 4 MG TAB.RAPDIS PO ONE (03:52)
[2017-08-07] MEDS ORDERED: CLONIDINE HCL 0.1 MG TABLET PO ONE (03:53)
[2017-08-07] MEDS ORDERED: ONDANSETRON ODT 4 MG TAB (6 TAB/ER DISP) PO PRN (03:54)
[2017-08-07 04:25] VITALS: BP 138/84
== END 2017-08-07 05:09 | disposition home or self-care (01) ==
LOC: ER 21:15
DX: F10.239 Alcohol dependence with withdrawal, unspecified (principal); E86.0 Dehydration; R11.2 Nausea with vomiting, unspecified; R61 Generalized hyperhidrosis; R20.0 Anesthesia of skin; R25.2 Cramp and spasm; R06.4 Hyperventilation; F17.210 Nicotine dependence, cigarettes, uncomplicated; I45.10 Unspecified right bundle-branch block
CPT/HCPCS: 93005; 99285; 96361; 96374; 96375; 36415; 80307 ×4; 82550; 83735; 85025; 80053; 81001; 84484; 93010; J1200; S0119; J3475; J3411; J7030; J7120

== ENCOUNTER 2017-12-16 10:21 | Emergency (ER) | payer SELFPAY ==
[2017-12-16 10:27] VITALS: BP 153/98
[2017-12-16] MEDS ORDERED: HYDROXYZINE HCL INJ 50 MG/1 ML VIAL IM ONE (10:35)
--- NOTE | 2017-12-16 10:39 | ER Document Report ---
ED Medical Screen (RME) - General Chief Complaint: Alcohol Withdrawl Stated Complaint: POSSIBLE ALCOHOL WITHDRAWAL Time Seen by Provider: 12/16/17 10:32 Mode of Arrival: Ambulatory Information source: Patient Notes: 32 years old male claimed that he has been withdrawing from alcohol, but he drank 3,12 ounce of beer last night which contain 12-14% alcohol. He appears to be pretending to be withdrawing by shaking his hands creating a cough. He is also states that he has abdominal pain. Denies any fever chills or other constitutional symptoms. He has been treated with Librium in the past Denies any other drug abuse. TRAVEL OUTSIDE OF THE [place].S. IN LAST 30 DAYS: No - Related Data Allergies/Adverse Reactions: No Known Allergies Allergy (Verified 12/16/17 10:22) Past Medical History - Social History Chew tobacco use (# tins/day): No Frequency of alcohol use: Heavy Drug Abuse: None Renal/ Medical History: Denies: Hx Peritoneal Dialysis Psychiatric Medical History: Reports: Hx Attention Deficit Hyperactivity Disorder - Immunizations Hx Diphtheria, Pertussis, Tetanus Vaccination: No Physical Exam - Vital signs Vitals: Temp Pulse Resp BP Pulse Ox 98.0 F 99 24 H 153/98 H 99 12/16/17 10:26 12/16/17 10:26 12/16/17 10:26 12/16/17 10:26 12/16/17 10:26 Course - Vital Signs Vital signs: Temp Pulse Resp BP Pulse Ox 98.0 F 99 24 H 153/98 H 99 12/16/17 10:26 12/16/17 10:26 12/16/17 10:26 12/16/17 10:26 12/16/17 10:26
[2017-12-16 11:17] LABS: ABSOLUTE BASOPHILS # (AUTO) 0.1 10^3/uL (0.0-0.2); ABSOLUTE LYMPHOCYTES (AUTO) 2.6 10^3/uL (0.5-4.7); ABSOLUTE MONOCYTES (AUTO) 0.9 10^3/uL (0.1-1.4); ABSOLUTE NEUT (AUTO) 6.3 10^3/uL (1.7-8.2); BASOPHILS % (AUTO) 0.6 % (0-2); EOSINOPHILS % (AUTO) 0.4 % (0-6); HEMATOCRIT 51.1 % (37.9-51.0); HEMOGLOBIN 17.8 g/dL (13.5-17.0); LYMPHOCYTES % (AUTO) 26.2 % (13-45); MEAN CORPUSCULAR HEMOGLOBIN 31.5 pg (27.0-33.4); MEAN CORPUSCULAR HGB CONC 34.9 g/dL (32.0-36.0); MEAN CORPUSCULAR VOLUME 90 fl (80-97); PLATELET COUNT 256 10^3/uL (150-450); RED BLOOD COUNT 5.65 10^6/uL (4.35-5.55); RED CELL DISTRIBUTION WIDTH 13.9 % (11.5-14.0); SEGMENTED NEUTROPHILS % (AUTO) 63.8 % (42-78); TOTAL CELLS COUNTED % (AUTO) 100 %; WHITE BLOOD COUNT 9.9 10^3/uL (4.0-10.5)
[2017-12-16 11:23] LABS: ALANINE AMINOTRANSFERASE 77 U/L (21-72); ALBUMIN 5.1 g/dL (3.5-5.0); ALCOHOL 82 mg/dL (NONE DETECTED); ALKALINE PHOSPHATASE 94 U/L (38-126); ASPARTATE AMINO TRANSFERASE 70 U/L (17-59); BILIRUBIN,DIRECT 0.3 mg/dL (0.0-0.4); BILIRUBIN,TOTAL 1.1 mg/dL (0.2-1.3); BLOOD UREA NITROGEN 12 mg/dL (7-20); CHLORIDE 93 mmol/L (98-107); GLUCOSE 108 mg/dL (75-110); POTASSIUM 4.4 mmol/L (3.6-5.0); TOTAL PROTEIN 8.6 g/dL (6.3-8.2)
[2017-12-16 11:25] LABS: APPEARANCE,URINE CLEAR; BILIRUBIN,URINE SMALL (NEGATIVE); GLUCOSE, URINE NEGATIVE (NEGATIVE); KETONES,URINE TRACE mg/dL (NEGATIVE); LEUKOCYTE ESTERASE,URINE NEGATIVE (NEGATIVE); NITRITE,URINE NEGATIVE (NEGATIVE); PROTEIN,URINE 100 mg/dL (NEGATIVE); URINE SPECIFIC GRAVITY 1.029
[2017-12-16 11:26] LABS: COLOR,URINE DARK YELLOW
[2017-12-16 11:28] LABS: CARBON DIOXIDE 23 mmol/L (22-30); SODIUM 140.9 mmol/L (137-145)
[2017-12-16 11:35] LABS: ANION GAP 25 (5-19)
--- NOTE | 2017-12-16 11:36 | ER Document Report ---
ED General <ARACELI SWANSON - Last Filed: 12/16/17 12:02> - General Mode of Arrival: Ambulatory TRAVEL OUTSIDE OF THE [place] IN LAST 30 DAYS: No <CURTIS FUNK - Last Filed: 12/16/17 20:14> - General Chief Complaint: Alcohol Withdrawl Stated Complaint: POSSIBLE ALCOHOL WITHDRAWAL Time Seen by Provider: 12/16/17 10:32 Notes: Patient says that he is here for alcohol withdrawal. He says that he is experiencing nausea and vomiting along with anterior chest pain since early this morning. Patient says that he has been drinking vodka excessively for the past few days. His last alcohol was last evening. Has had some diarrhea as well as the nausea and vomiting. Has a burning chest pain all up and down the front of his chest. Has not had any fevers. No history of any liver disease. Patient has a history of anxiety for which he takes Vistaril, but he has not taken any for a couple of days. Also takes trazodone to help him sleep at night. Denies using any illicit drugs or abusing any prescription medications. (CURTIS FUNK) - Related Data Allergies/Adverse Reactions: No Known Allergies Allergy (Verified 12/16/17 10:22) Past Medical History - General Information source: Patient - Social History Smoking Status: Never Smoker Chew tobacco use (# tins/day): No Frequency of alcohol use: Heavy Drug Abuse: None Family History: Reviewed & Not Pertinent Patient has suicidal ideation: No Patient has homicidal ideation: No Psychiatric Medical History: Reports: Hx Anxiety, Hx Attention Deficit Hyperactivity Disorder Denies: Hx Depression Surgical Hx: Negative - Immunizations Hx Diphtheria, Pertussis, Tetanus Vaccination: No <CURTIS FUNK - Last Filed: 12/16/17 20:14> Review of Systems <ARACELI SWANSON - Last Filed: 12/16/17 12:02> <CURTIS FUNK - Last Filed: 12/16/17 20:14> - Review of Systems Notes: REVIEW OF SYSTEMS: CONSTITUTIONAL : Denies fever. EENT: Denies eye, ear, nose or mouth or throat pain or other symptoms. CARDIOVASCULAR: See HPI. RESPIRATORY: Denies cough, chest congestion, or shortness of breath. GASTROINTESTINAL: See HPI. GENITOURINARY: Denies difficulty or painful urinating, urinary frequency, blood in urine. MUSCULOSKELETAL: Denies back or neck pain. Denies joint pain or swelling. SKIN: Denies rash or skin lesions. NEUROLOGICAL: Denies LOC or altered mental status. Does have a mild headache. Denies sensory loss or motor deficits. ALL OTHER SYSTEMS REVIEWED AND NEGATIVE. (CURTIS FUNK) Physical Exam <KIKIARACELI - Last Filed: 12/16/17 12:02> - Vital signs Interpretation: Normal, Hypertensive - Minimal <CURTIS FUNK - Last Filed: 12/16/17 20:14> - Vital signs Vitals: Temp Pulse Resp BP Pulse Ox 98.0 F 99 24 H 153/98 H 99 12/16/17 10:26 12/16/17 10:26 12/16/17 10:26 12/16/17 10:26 12/16/17 10:26 - Notes Notes: PHYSICAL EXAMINATION: GENERAL: Well-appearing, in no acute distress. Complains of pain in the anterior chest. HEAD: Atraumatic, normocephalic. EYES: Pupils equal round and reactive to light, extraocular movements intact. ENT: oropharynx clear without exudates. Moist mucous membranes. NECK: Normal range of motion, supple. LUNGS: Breath sounds clear and equal bilaterally. HEART: Regular rate and rhythm without murmurs. ABDOMEN: Minimal tenderness in the epigastric region, but otherwise,soft, nontender. No guarding or rebound. No masses. BACK: No tenderness throughout entire back. EXTREMITIES: Normal range of motion without pain. NEUROLOGICAL: Normal speech, normal gait. Normal sensory, motor, and reflex exams. Awake, alert, and oriented x3. Cranial nerves normal. PSYCH: Normal mood, normal affect. SKIN: Warm, dry, no rashes. (CURTIS FUNK) Course - Laboratory Result Diagrams: 12/16/17 10:35 12/16/17 10:35 <TESSWOLFARACELI - Last Filed: 12/16/17 12:02> - Laboratory Result Diagrams: 12/16/17 10:35 12/16/17 10:35 - EKG Interpretation by Ms EKG shows normal: Sinus rhythm Rate: Normal Rhythm: NSR <CURTIS FUNK - Last Filed: 12/16/17 20:14> - Vital Signs Vital signs: Temp Pulse Resp BP Pulse Ox 98.0 F 99 24 H 153/98 H 99 12/16/17 10:26 12/16/17 10:26 12/16/17 10:26 12/16/17 10:26 12/16/17 10:26 - Laboratory Laboratory results interpreted by me: 12/16/17 12/16/17 12/16/17 10:35 10:35 10:35 RBC 5.65 H Hgb 17.8 H Hct 51.1 H Chloride 93 L Anion Gap 25 H AST 70 H ALT 77 H Total Protein 8.6 H Albumin 5.1 H Urine Protein 100 H Urine Ketones TRACE H Urine Bilirubin SMALL H Urine Urobilinogen 4.0 H - EKG Interpretation by Me Additional EKG results interpreted by me: 12/16/17 11:45 EKG is normal. (CURTIS FUNK) Discharge <ARACELI SWANSON - Last Filed: 12/16/17 12:02> <CURTIS FUNK - Last Filed: 12/16/17 20:14> - Discharge Clinical Impression: Alcohol use, Desire for detoxification Condition: Stable Disposition: HOME, SELF-CARE Additional Instructions: ACUTE ALCOHOL INTOXICATION and ALCOHOL ABUSE: (Due to reported relapse after several months of sobriety) Your evaluation revealed very high levels of alcohol. You can from drinking a large amount of alcohol rapidly! Further, there's the risk of falls , traffic accidents, and fights. A high portion (about 50 percent) of the serious injuries seen in hospital emergency rooms are caused by alcohol. Alcohol overdosage is usually due to an underlying emotional or psychiatric problem. You may benefit from counselling. If "binge" drinking is an ongoing problem for you, or if you drink ANY AMOUNT of alcohol EVERY day, you most likely have a tendency to alcoholism. You should avoid alcohol totally. We can refer you for treatment. Persons with alcohol problems are often also prone to other addictions -- you should discuss any use of medications or drugs with the doctor. You should be watched at home for the next several hours by someone who has not been drinking. Get extra fluids for the next 24 hours. Call the doctor if there is repeated vomiting, increasing headache, decreasing level of alertness, or any other worsening. CHRONIC ALCOHOLISM and ALCOHOL ABUSE: (Due to previous treatment) Your evaluation reveals evidence of chronic alcoholism, an addiction to alcohol. The tendency to alcoholism may be inherited. Chronic use of alcohol weakens muscles, causes fatty deposits in the liver , damages the stomach, makes you more prone to infections, and can cause defects in unborn children. In the long run, brain atrophy and cirrhosis of the liver result. You are also at greater risk for certain types of cancer, such as cancer of the mouth, throat, stomach, and liver. Counselling services are available to help you. In-hospital treatment programs often help. Support groups such as Alcoholics Anonymous can be very useful in beating this addiction. Your physician can make a referral for you. As alcoholics often are prone to other addictions, you should discuss your use of any other medications with the doctor. ALCOHOL WITHDRAWAL: (Depending on how long you have been drinking you may experience) Your symptoms are caused by alcohol withdrawal. After a period of frequent drinking, the brain and body are changed by the alcohol. When you quit or reduce your drinking, the nervous system becomes unstable. Withdrawal symptoms can start a few hours after your last drink, but sometimes don't begin until a couple of days later. Symptoms can include shakiness, sweating, insomnia, nausea , vomiting, fearfulness, hallucinations, and seizures. In addition to the acute effects of alcohol withdrawal, we often have to deal with the medical effects of alcoholism. These problems often include dehydration, stomach irritation, intestinal bleeding, low blood sugar, liver disease, and pancreas inflammation. Treatment for alcohol withdrawal includes mild sedatives, vitamins, and fluids. You need to be with someone who can help if symptoms become severe. Many patients can withdraw at home. Admission to the hospital or a detox facility may be necessary if withdrawal symptoms are severe and uncontrollable. Abstaining from alcohol is the only effective long-term treatment. If you start drinking again, you will not be able to control yourself after the first drink. Treatment programs are available. In addition, many alcoholics benefit from Alcoholics Anonymous or other support groups available through your counselor or [employer] cable operator. AL-ANON and ALA-TEEN are support groups for friends and family members of an alcoholic. Go to the emergency room if you develop persistent vomiting, severe abdominal pain, fever, shortness of breath, hallucinations, uncontrollable tremors, or seizures. FOLLOW-UP CARE: You have been provided with the mental health outpatient resource sheet which highlighted [facility] ([facility]) for voluntary alcohol detox placement, as well as highlighted [facility] for Substance Abuse Intensive Outpatient treatment (SAIOP) following detox. If you experience worsening or a significant change in your symptoms, notify the physician immediately, utilize mobile crisis or return to the Emergency Department at any time for re-evaluation. Referrals: JOSE CANDELARIO MD [Primary Care Provider] - Follow up as needed [facility] [Outside] - Follow up as needed [facility] [Outside] - Follow up as needed
[2017-12-16 11:38] LABS: URINE AMPHETAMINES SCREEN NEGATIVE; URINE BARBITURATES SCREEN NEGATIVE; URINE BENZODIAZEPINES SCREEN NEGATIVE; URINE COCAINE SCREEN NEGATIVE; URINE MARIJUANA (THC) SCREEN NEGATIVE; URINE METHADONE SCREEN NEGATIVE; URINE PHENCYCLIDINE SCREEN NEGATIVE
--- NOTE | 2017-12-16 16:27 | PSYCHOLOGICAL NOTE ---
Psych Note - Psych Note Date seen by psych provider: 12/16/17 Time seen by psych provider: 11:50 - Chart review at 1140, Evalutaion lasted until 1200 Psych Note: Reason for Consult: ETOH withdrawal Contact Permissions: Unknown Patient is a 32 year old male who presented to the ED this afternoon for ETOH intoxication/abuse/withdrawal. Serum Alcohol Level was 82 upon arrival to ED. Review of chart indicated on 04/11/17 at 1527 he had a Serum Alcohol Level of 182 and on 02/17/17 at 2224 he had a Serum Alcohol Level of 35. Today he stated he was interested in detox and his last drink was a few hours after 2100 when he purchased alcohol. He stated he had driven himself, he resides about 3 minutes away and he just had to get his vomiting under control before he came. He acknowledged previous detox in March 2017 at the [facility] in [place]. He stated he went a few months sober, had gotten back into and obtained a Sponsor. He identified he was involved in [facility] as well. He stated he had been to the hospital one other time since March for a relapse (so this being his second one). He denied any trigger and commented there was no major trauma or stress. He reported he is prescribed Vistaril for anxiety and Trazodone for sleep, these were provided when he went to detox, he does not take them when he drinks due to bad interaction when he took Tylenol PM and drank once. He stated I have had anxiety since I was a kid. He denied current SI/HI. He denied previous hospitalization. Patient was alert and oriented to person, place, time and situation. Mood was depressed with flat affect (likely due to sobering up). He denied current SI/ HI. He did not appear to be responding to internal stimuli as evidenced by fair eye contact, answering questions appropriately when addressed, staying on topic , carrying on dialogue conversation and being engaged in evaluation. Thought processes were organized and linear. Conversational speech was within normal limits for rate, tone and prosody. Intellectual abilities are estimated to be average. Insight, judgment and impulse control were fair as evidenced by sober and no longer under the influence of alcohol and seeking detox/treatment. Diagnosis: 303.00 (F10.229) Alcohol intoxication, With Use Disorder, Severe 300.00 (F41.9) Unspecified Anxiety Disorder by History per patient Impression/Plan: Patient is cleared from acute psychiatric services. He denied current SI/HI, there was no observed psychosis and he is at legal limit for alcohol intoxication. He noted his primary concern was alcohol withdrawal and wanting detox. Recommended patient use [facility] for voluntary alcohol detox and he was familiar as he said that was who assisted him the last time. Provided patient with outpatient MH resource sheet which highlighted [facility] for crisis, talk therapy, detox placement and linkage to other services. Also highlighted [facility] for SAIOP after detox. Patient stated he would have [facility] meet them at his home. Consulted with Dr. Santiago regarding the management and care of patient. ED Physician in agreement with recommendations.
--- NOTE | 2017-12-17 08:20 | EKG REPORT ---
SEVERITY:- BORDERLINE ECG - SINUS RHYTHM PROBABLE LEFT ATRIAL ABNORMALITY : Confirmed by: Rosanne Reyes MD 17-Dec-2017 08:19:25
== END 2017-12-16 12:24 | disposition home or self-care (01) ==
LOC: ER 10:21
DX: R11.2 Nausea with vomiting, unspecified (principal); R19.7 Diarrhea, unspecified; F41.9 Anxiety disorder, unspecified; F10.239 Alcohol dependence with withdrawal, unspecified
CPT/HCPCS: 93005; 99285; 96372; 36415; 80307 ×2; 83690; 85025; 80053; 81001; 93010; J3490

== ENCOUNTER 2019-05-02 08:21 | Emergency (ER) | payer SELFPAY ==
[2019-05-02] MEDS ORDERED: ONDANSETRON HCL INJ/PF 4 MG/2 ML SDV IV ONE (08:58)
[2019-05-02] MEDS ORDERED: NORMAL SALINE 1000 ML 1,000 ML IV ONE (08:58)
[2019-05-02 09:53] LABS: ABSOLUTE BASOPHILS # (AUTO) 0.1 10^3/uL (0.0-0.2); ABSOLUTE EOSINOPHILS # (AUTO) 0.1 10^3/uL (0.0-0.6); ABSOLUTE MONOCYTES (AUTO) 0.7 10^3/uL (0.1-1.4); ABSOLUTE NEUT (AUTO) 5.2 10^3/uL (1.7-8.2); BASOPHILS % (AUTO) 0.8 % (0-2); EOSINOPHILS % (AUTO) 1.5 % (0-6); HEMATOCRIT 49.5 % (37.9-51.0); HEMOGLOBIN 17.6 g/dL (13.5-17.0); LYMPHOCYTES % (AUTO) 24.2 % (13-45); MEAN CORPUSCULAR HGB CONC 35.5 g/dL (32.0-36.0); MEAN CORPUSCULAR VOLUME 90 fl (80-97); PLATELET COUNT 207 10^3/uL (150-450); RED BLOOD COUNT 5.49 10^6/uL (4.35-5.55); RED CELL DISTRIBUTION WIDTH 13.8 % (11.5-14.0); SEGMENTED NEUTROPHILS % (AUTO) 64.5 % (42-78); TOTAL CELLS COUNTED % (AUTO) 100 %; WHITE BLOOD COUNT 8.1 10^3/uL (4.0-10.5)
--- NOTE | 2019-05-02 10:08 | ER Document Report ---
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 IV placed in R AC pt tolerated well . Labs ob tainted. Seizure precautions initiated. Pt nauseated but not vomiting. Will CTM. 34-year-old male arrives by POV with chief complaint of nausea and vomiting with binge drinking for the last 5 days. He drinks vodka on binge drinking. He was off and abstinent for 1 month but then he reports he went back to drinking again. He has been drinking since a teenager but worse on a daily basis for the last 8 years. He reports he was having greater than 5 vomiting yesterday with blood-tinged vomitus and once today. He feels dehydrated today. He also has numbness of his left arm and left face. He lives with his stepfather and mother [place] [facility] [place] who are good support systems and also his father lives [place] [facility] [place] who we can call if there is a problem. He has a life partner. Also patient reports he does not remember for the last for 5 days while drinking he has vodka binge. He did awaken with his above symptoms. He denies any diarrhea. He denies any abdominal pain or rib pain or neck pain. He denies any abrasions or animal bite spider bites. TRAVEL OUTSIDE OF THE [place] IN LAST 30 DAYS: No - HPI Onset: This morning Onset/Duration: Sudden Quality of pain: No pain Severity: None Pain Level: Denies Associated symptoms: Body/muscle aches, Nausea, Vomiting, Weakness Exacerbated by: Denies Relieved by: Denies Similar symptoms previously: Yes Recently seen / treated by doctor: No - Related Data Allergies/Adverse Reactions: No Known Allergies Allergy (Verified 05/02/19 08:25) Past Medical History - General Information source: Patient - Social History Smoking Status: Current Every Day Smoker Cigarette use (# per day): Yes Chew tobacco use (# tins/day): No Smoking Education Provided: Yes Frequency of alcohol use: Heavy Drug Abuse: None Lives with: Family Family History: Reviewed & Not Pertinent Patient has suicidal ideation: No Patient has homicidal ideation: No Renal/ Medical History: Denies: Hx Peritoneal Dialysis Psychiatric Medical History: Reports: Hx Anxiety, Hx Attention Deficit Hyperactivity Disorder Denies: Hx Depression - Immunizations Hx Diphtheria, Pertussis, Tetanus Vaccination: No Review of Systems - Review of Systems Constitutional: See HPI, Malaise, Weakness EENT: No symptoms reported Cardiovascular: No symptoms reported Respiratory: No symptoms reported Gastrointestinal: See HPI, Abdominal pain, Nausea, Vomiting Genitourinary: No symptoms reported Male Genitourinary: No symptoms reported Musculoskeletal: No symptoms reported Skin: No symptoms reported Hematologic/Lymphatic: No symptoms reported Neurological/Psychological: No symptoms reported Physical Exam - Vital signs Vitals: Temp Pulse Resp BP Pulse Ox 97.8 F 87 19 144/88 H 99 05/02/19 08:24 05/02/19 08:24 05/02/19 08:24 05/02/19 08:24 05/02/19 08:24 Interpretation: Normal - HEENT Head: Normocephalic Eyes: Normal Conjunctiva: Normal Cornea: Normal Extraocular movements intact: Yes Eyelashes: Normal Pupils: PERRL - Respiratory Respiratory status: No respiratory distress Chest status: Nontender Breath sounds: Normal Chest palpation: Normal - Cardiovascular Rhythm: Regular Heart sounds: Normal auscultation Murmur: No Friction rub: No Dylan's crunch: No - Abdominal Inspection: Normal Distension: No distension Bowel sounds: Normal Tenderness: Nontender Organomegaly: No organomegaly - Back Back: Normal - Extremities General upper extremity: Normal inspection General lower extremity: Normal inspection - Neurological Neuro grossly intact: Yes Cognition: Normal Orientation: AAOx4 [place] Coma Scale Eye Opening: Spontaneous [place] Coma Scale Verbal: Oriented [place] Coma Scale Motor: Obeys Commands [place] Coma Scale Total: 15 Speech: Normal Cranial nerves: Normal Cerebellar coordination: Normal Motor strength normal: LUE, RUE, LLE, RLE - Psychological Associated symptoms: Normal affect - Skin Skin Temperature: Warm Skin Moisture: Dry Course - Vital Signs Vital signs: Temp Pulse Resp BP Pulse Ox 97.8 F 87 19 152/96 H 97 05/02/19 08:24 05/02/19 08:24 05/02/19 11:01 05/02/19 11:01 05/02/19 11:01 - Laboratory Result Diagrams: 05/02/19 09:20 05/02/19 09:20 Laboratory results interpreted by me: 05/02/19 05/02/19 05/02/19 09:20 09:20 09:20 Hgb 17.6 H Sodium 134.7 L Chloride 95 L BUN 6 L Total Bilirubin 2.0 H AST 72 H ALT 67 H Total Protein 8.3 H Urine Ketones Acetaminophen < 10 L 05/02/19 10:39 Hgb Sodium Chloride BUN Total Bilirubin AST ALT Total Protein Urine Ketones 20 H Acetaminophen - Diagnostic Test Radiology reviewed: Reports reviewed Critical Care Note - Critical Care Note Total time excluding time spent on procedures (mins): 90 Comments: I discussed lab findings and CT findings with patient and his mother who arrived to room around 1200. I advised patient to follow-up with personal doctor and with alcohol rehab center. Also advised abstinence from alcohol in small amounts through he will be decreased risk from DTs patient reports he went to [facility] around 2 years ago but later rebounded to drinking again. Discharge - Discharge Clinical Impression: Alcohol abuse, Gastritis Vomiting Qualifiers: Vomiting type: unspecified Vomiting Intractability: unspecified Nausea presence: with nausea Qualified Code(s): R11.2 - Nausea with vomiting, unspecified Condition: Good Disposition: HOME, SELF-CARE Instructions: Antinausea Medication ([facility]) Additional Instructions: You are medically cleared for alcohol rehab. I suggest stopping drinking your alcohol; also advised only small amounts of alcohol in increasingly smaller amounts each day for around 1 to 2 weeks. This is to stop the potential for DTs. Should you have any shakes you have a prescription called Ativan you may take. Also do not drink alcohol if you take Campral for alcohol abstinence. Return to ER as needed take your medicines as directed encourage fluids like grape juice or apple juice. Also take multiple B vitamins on a daily basis and try to walk a mile for exercise. Prescriptions: Acamprosate Calcium 333 mg PO DAILY #15 tablet. Lorazepam [Ativan 1 mg Tablet] 1 mg PO HSP PRN #5 tab PRN Reason: Famotidine [Pepcid 20 mg Tablet] 20 mg PO BID #12 tablet Ondansetron [Zofran Odt 4 mg Tablet] 1 tab PO Q4H PRN #15 tab.rapdis PRN Reason: For Nausea/Vomiting Forms: Return to Work
[2019-05-02 10:09] LABS: ALKALINE PHOSPHATASE 104 U/L (38-126); ANION GAP 15 (5-19); ASPARTATE AMINO TRANSFERASE 72 U/L (17-59); BILIRUBIN,DIRECT 0.3 mg/dL (0.0-0.4); BLOOD UREA NITROGEN 6 mg/dL (7-20); CALCIUM 9.8 mg/dL (8.4-10.2); CARBON DIOXIDE 25 mmol/L (22-30); CHLORIDE 95 mmol/L (98-107); GLUCOSE 80 mg/dL (75-110); POTASSIUM 3.9 mmol/L (3.6-5.0); TOTAL PROTEIN 8.3 g/dL (6.3-8.2)
[2019-05-02 10:58] LABS: APPEARANCE,URINE CLEAR; BILIRUBIN,URINE NEGATIVE (NEGATIVE); COLOR,URINE STRAW; GLUCOSE, URINE NEGATIVE (NEGATIVE); KETONES,URINE 20 mg/dL (NEGATIVE); LEUKOCYTE ESTERASE,URINE NEGATIVE (NEGATIVE); NITRITE,URINE NEGATIVE (NEGATIVE); PROTEIN,URINE NEGATIVE (NEGATIVE); URINE SPECIFIC GRAVITY 1.003; UROBILINOGEN,URINE NEGATIVE mg/dL (<2.0)
[2019-05-02 11:22] LABS: ACETAMINOPHEN < 10 ug/mL (10-30); ALCOHOL < 10 mg/dL (NONE DETECTED)
--- NOTE | 2019-05-02 11:48 | RADIOLOGY REPORT (SQ) ---
EXAM DESCRIPTION: CT HEAD WITHOUT COMPLETED DATE/TIME: 05/02/2019 11:36 am REASON FOR STUDY: drinks vodka passed out left face arm numb COMPARISON: None. TECHNIQUE: Axial images acquired through the brain without intravenous contrast. Images reviewed wi th bone, brain and subdural windows. Additional sagittal and coronal reconstructions were generated. Images stored on PACS. All CT scanners at this facility use dose modulation, iterative reconstruction, and/or weight based d osing when appropriate to reduce radiation dose to as low as reasonably achievable (ALARA). [facility]: Dose Right [facility]: CareDose [facility]: Dose Right [facility]: Teradose 4D [facility]: [employer] RADIATION DOSE: CT Rad equipment meets quality standard of care and radiation dose reduction techniq ues were employed. CTDIvol: 53.2 mGy. DLP: 964 mGy-cm. mGy. LIMITATIONS: None. FINDINGS: VENTRICLES: Normal size and contour. CEREBRUM: No masses. No hemorrhage. No midline shift. No evidence for acute infarction. Normal gra y/white matter differentiation. No areas of low density in the white matter. CEREBELLUM: No masses. No hemorrhage. No alteration of density. No evidence for acute infarction. EXTRAAXIAL SPACES: No fluid collections. No masses. ORBITS AND GLOBE: No intra- or extraconal masses. Normal contour of globe without masses. CALVARIUM: No fracture. PARANASAL SINUSES: Scattered ethmoid air cell opacities and lobular mucosal thickening of the left ma xillary sinus. No fluid levels. The mastoids are clear. SOFT TISSUES: No mass or hematoma. OTHER: No other significant finding. IMPRESSION: NO ACUTE INTRACRANIAL IMAGING FINDINGS. EVIDENCE OF ACUTE STROKE: NO. COMMENT: Quality ID # [id number]: Final reports with documentation of one or more dose reduction techniques (e.g., Automated exposure control, adjustment of the mA and/or kV according to patient size, use of iterative reconstruction technique) TECHNICAL DOCUMENTATION: JOB ID: [id number] 2010 [employer]- All Rights Reserved Reading location - IP/workstation name: [email or web address]
--- NOTE | 2019-05-02 11:50 | RADIOLOGY REPORT (SQ) ---
EXAM DESCRIPTION: CT CERVICAL SPINE WITHOUT COMPLETED DATE/TIME: 05/02/2019 11:36 am REASON FOR STUDY: drinks vodka passed out left face arm numb COMPARISON: None. TECHNIQUE: Axial images acquired through the cervical spine without intravenous contrast. Images re viewed with lung, soft tissue and bone windows. Reconstructed coronal and sagittal MPR images review ed. Images stored on PACS. All CT scanners at this facility use dose modulation, iterative reconstruction, and/or weight based d osing when appropriate to reduce radiation dose to as low as reasonably achievable (ALARA). [facility]: Dose Right [facility]: CareDose [facility]: Dose Right [facility]: Teradose 4D [facility]: [employer] RADIATION DOSE: CT Rad equipment meets quality standard of care and radiation dose reduction techniq ues were employed. CTDIvol: 18.5 mGy. DLP: 420 mGy-cm. mGy. LIMITATIONS: None. FINDINGS: ALIGNMENT: Anatomic. MINERALIZATION: Normal. VERTEBRAL BODIES: No fractures or dislocation. DISCS: Mild multilevel spondylotic changes are present. FACETS, LATERAL MASSES, POSTERIOR ELEMENTS: No fractures. No dislocation. No acute findings. HARDWARE: None in the spine. VISUALIZED RIBS: No fractures. LUNG APICES AND SOFT TISSUES: Subpleural blebs are seen bilaterally OTHER: No other significant finding. IMPRESSION: No evidence of acute osseous injury. TECHNICAL DOCUMENTATION: JOB ID: [id number] Quality ID # [id number]: Final reports with documentation of one or more dose reduction techniques (e.g., Au tomated exposure control, adjustment of the mA and/or kV according to patient size, use of iterative reconstruction technique) 2010 [employer]- All Rights Reserved Reading location - IP/workstation name: [email or web address]
[2019-05-02] MEDS ORDERED: NORMAL SALINE 1000 ML 1,000 ML with POTASSIUM CHLORIDE 20 MEQ, MAGNESIUM SULFATE 8 MEQ,... IV SCH ×15 (12:01→18:00)
[2019-05-02] MEDS ORDERED: FAMOTIDINE INJ/PF 20 MG/2 ML SDV IV ONE (12:02)
[2019-05-02 12:49] LABS: URINE AMPHETAMINES SCREEN NEGATIVE; URINE BARBITURATES SCREEN NEGATIVE; URINE BENZODIAZEPINES SCREEN NEGATIVE; URINE COCAINE SCREEN NEGATIVE; URINE MARIJUANA (THC) SCREEN NEGATIVE; URINE METHADONE SCREEN NEGATIVE; URINE PHENCYCLIDINE SCREEN NEGATIVE
[2019-05-02 13:36] VITALS: BP 146/92
== END 2019-05-02 14:00 | disposition home or self-care (01) ==
LOC: ER 08:21
DX: F10.10 Alcohol abuse, uncomplicated (principal); K29.70 Gastritis, unspecified, without bleeding; R11.2 Nausea with vomiting, unspecified; M79.10 Myalgia, unspecified site; R53.1 Weakness; F17.210 Nicotine dependence, cigarettes, uncomplicated
CPT/HCPCS: 99291; 99292; 96361; 96375; 96365; 36415; 80307 ×3; 85025; 80053; 81001; 70450; 72125; J3475; J3480; J3411; J2405; J7030; S0028; J3490

== ENCOUNTER 2019-06-14 02:16 | Emergency (ER) | payer SELFPAY ==
[2019-06-14 02:44] LABS: ABSOLUTE EOSINOPHILS # (AUTO) 0.1 10^3/uL (0.0-0.6); ABSOLUTE MONOCYTES (AUTO) 0.8 10^3/uL (0.1-1.4); EOSINOPHILS % (AUTO) 1.4 % (0-6); TOTAL CELLS COUNTED % (AUTO) 100 %
[2019-06-14 02:56] LABS: ABSOLUTE BASOPHILS # (AUTO) 0.1 10^3/uL (0.0-0.2); ABSOLUTE LYMPHOCYTES (AUTO) 2.6 10^3/uL (0.5-4.7); ABSOLUTE NEUT (AUTO) 6.2 10^3/uL (1.7-8.2); BASOPHILS % (AUTO) 0.6 % (0-2); HEMATOCRIT 48.1 % (37.9-51.0); LYMPHOCYTES % (AUTO) 26.8 % (13-45); MEAN CORPUSCULAR HEMOGLOBIN 31.6 pg (27.0-33.4); MEAN CORPUSCULAR HGB CONC 35.3 g/dL (32.0-36.0); MEAN CORPUSCULAR VOLUME 90 fl (80-97); MONOCYTES % (AUTO) 7.8 % (3-13); PLATELET COUNT 207 10^3/uL (150-450); RED BLOOD COUNT 5.36 10^6/uL (4.35-5.55); SEGMENTED NEUTROPHILS % (AUTO) 63.4 % (42-78); WHITE BLOOD COUNT 9.8 10^3/uL (4.0-10.5)
[2019-06-14 02:58] LABS: ALBUMIN 4.9 g/dL (3.5-5.0); ALKALINE PHOSPHATASE 93 U/L (38-126); ANION GAP 14 (5-19); ASPARTATE AMINO TRANSFERASE 56 U/L (17-59); BLOOD UREA NITROGEN 7 mg/dL (7-20); CALCIUM 9.7 mg/dL (8.4-10.2); CARBON DIOXIDE 25 mmol/L (22-30); CHLORIDE 96 mmol/L (98-107); GLUCOSE 88 mg/dL (75-110); POTASSIUM 3.9 mmol/L (3.6-5.0); TOTAL PROTEIN 8.3 g/dL (6.3-8.2)
[2019-06-14] MEDS ORDERED: DIAZEPAM INJ 10 MG/2 ML DISP.SYRIN IV ONE (03:45)
--- NOTE | 2019-06-14 04:36 | RADIOLOGY REPORT (SQ) ---
EXAM: XR Chest, 1 View EXAM DATE/TIME: 06/14/2019 4:15 AM CLINICAL HISTORY: The patient is 34 years old and is Male; chest pain TECHNIQUE: Frontal view of the chest. COMPARISON: No relevant prior studies available. FINDINGS: LUNGS: Unremarkable. No consolidation. PLEURAL SPACE: Unremarkable. No pneumothorax. HEART: No significant enlargement of the cardiac silhouette. MEDIASTINUM: Unremarkable. BONES/JOINTS: No acute osseous findings. IMPRESSION: No acute findings visualized in the chest.
--- NOTE | 2019-06-14 04:39 | ER Document Report ---
ED General - General Chief Complaint: Alcohol Withdrawl Stated Complaint: POSSIBLE WITHDRAWL Time Seen by Provider: 06/14/19 03:07 Notes: 34-year-old male with history of alcohol use disorder presents to the emergency department with concerns for acute alcohol withdrawal. Patient states that he drank 1/5 of liquor per day for 1 week and stopped drinking 2 days ago. Patient states that he is very anxious, has the shakes, had some numbness and tingling in his left face and left arm, and started having some twitching in his eye which he said precipitated a withdrawal seizure in the past. Patient denies any fevers, complains of rigors, complains of anxiety, does complain of chest pain, denies shortness of breath, denies nausea/vomiting/diarrhea. Patient previously did detox at [facility]. TRAVEL OUTSIDE OF THE [place] IN LAST 30 DAYS: No - Related Data Allergies/Adverse Reactions: No Known Allergies Allergy (Verified 06/14/19 03:23) Past Medical History - Social History Smoking Status: Current Every Day Smoker Family History: Reviewed & Not Pertinent Patient has suicidal ideation: No Patient has homicidal ideation: No Renal/ Medical History: Denies: Hx Peritoneal Dialysis Psychiatric Medical History: Reports: Hx Anxiety, Hx Attention Deficit Hyperactivity Disorder Denies: Hx Depression - Immunizations Hx Diphtheria, Pertussis, Tetanus Vaccination: No Review of Systems - Review of Systems Constitutional: See HPI EENT: No symptoms reported Cardiovascular: See HPI Respiratory: See HPI Gastrointestinal: See HPI Genitourinary: No symptoms reported Male Genitourinary: No symptoms reported Musculoskeletal: See HPI Skin: No symptoms reported Hematologic/Lymphatic: No symptoms reported Neurological/Psychological: No symptoms reported Physical Exam - Vital signs Vitals: Resp BP Pulse Ox 25 H 164/103 H 99 06/14/19 02:18 06/14/19 02:18 06/14/19 02:18 - Notes Notes: PHYSICAL EXAMINATION: Reviewed vital signs and charting by RN GENERAL: Alert, interacts well. Mild distress with rigors HEAD: Normocephalic, atraumatic. EYES: Pupils equal and round. Extraocular movements intact. ENT: Oral mucosa moist, tongue midline. NECK: Full range of motion. Trachea midline. LUNGS: Clear to auscultation bilaterally, no wheezes, rales, or rhonchi. No respiratory distress. HEART: Regular rate and rhythm. No murmur ABDOMEN: soft, non-tender. No distention. Bowel sounds present EXTREMITIES: Moves all 4 extremities spontaneously. No edema, No cyanosis. PSYCH: Normal affect, depressed mood, anxiety. SKIN: Warm, dry, normal turgor. No rashes or lesions noted. Course - Re-evaluation Re-evalutation: 06/14/19 04:36 Patient appears anxious and does have rigors. Patient is mildly hypertensive, last reading 146/93, all other vital signs within normal limits. Patient is concerned that he will have a withdrawal seizure so I have ordered Valium 5 mg IV once as he said Ativan makes him shake and he has a bad reaction to it. Chest x-ray ordered as he was complaining of chest pain, no evidence of fractures, pneumothorax, no cardiomegaly, lung clinton are clear. EKG showed a sinus rhythm with a rate of 67 axis, no ST segment elevations or depressions, no T wave abnormalities. Plan is to treat patient symptomatically and give him an outpatient prescription for Librium. Lab work is all within normal limits. At this time he is stable for discharge. 06/14/19 04:59 Discovered from nurse that patient drove himself here. He did receive Valium 5 mg IV once at 3:45 AM. He is going to call a cab. I am going to give an additional Valium 5 mg p.o. once so we will metabolize longer and a prescription for Librium. - Vital Signs Vital signs: Temp Pulse Resp BP Pulse Ox 98.6 F 15 152/97 H 99 06/14/19 02:24 06/14/19 03:01 06/14/19 03:01 06/14/19 03:01 - Laboratory Result Diagrams: 06/14/19 02:35 06/14/19 02:35 Laboratory results interpreted by me: 06/14/19 02:35 Sodium 135.1 L Chloride 96 L Total Protein 8.3 H Discharge - Discharge Clinical Impression: Alcohol withdrawal Qualifiers: Complication of substance-induced condition: uncomplicated Qualified Code(s): F10.230 - Alcohol dependence with withdrawal, uncomplicated Condition: Good Disposition: HOME, SELF-CARE Additional Instructions: You have been sent home on medication to help withdraw from alcohol. You should only start taking this medication and discontinue alcohol if you are serious about quitting alcohol. This will not completely remove all your symptoms from withdrawal should make it so that your symptoms are more manageable. You need to return to the emergency room immediately if you pass out, or vomiting so severely your unable to keep anything down, start hallucinate, or have any other symptoms that are of concern to you. You need to go to an inpatient program and should speak with your primary care doctor regarding these resources. How to take the librium to come off alcohol. DO NOT DRINK ANY ALCOHOL WHILE USING THIS MEDICATION Day 1-3: 75mg PO TID Day 4-6: 50mg PO TID Day 7-9: 25mg PO TID Day 10-12: 25mg PO BID Day 13-15: 25mg PO daily PRN Prescriptions: Chlordiazepoxide HCl 5 mg PO ASDIR PRN #53 capsule PRN Reason:
[2019-06-14] MEDS ORDERED: DIAZEPAM 5 MG TABLET PO ONE (04:59)
[2019-06-14 05:13] VITALS: BP 145/100
--- NOTE | 2019-06-14 08:34 | EKG REPORT ---
SEVERITY:- ABNORMAL ECG - SINUS RHYTHM PROBABLE LEFT VENTRICULAR HYPERTROPHY BORDERLINE INFERIOR Q WAVES ST ELEV, PROBABLE NORMAL EARLY REPOL PATTERN : Confirmed by: Isabelle Acharya 14-Jun-2019 08:34:20
== END 2019-06-14 05:30 | disposition home or self-care (01) ==
LOC: ER 02:16
DX: F10.230 Alcohol dependence with withdrawal, uncomplicated (principal); F41.9 Anxiety disorder, unspecified; R07.9 Chest pain, unspecified; R20.0 Anesthesia of skin; R20.2 Paresthesia of skin; R25.3 Fasciculation; R68.89 Other general symptoms and signs; I10 Essential (primary) hypertension; F17.200 Nicotine dependence, unspecified, uncomplicated
CPT/HCPCS: 93005; 99285; 96374; 36415; 83690; 85025; 80053; 71045; 93010; J3360

== ENCOUNTER 2019-07-31 08:40 | Emergency (ER) | payer SELFPAY ==
[2019-07-31] MEDS ORDERED: NORMAL SALINE 1000 ML 1,000 ML IV ONE (08:59)
[2019-07-31] MEDS ORDERED: LORAZEPAM INJ 2 MG/1 ML VIAL IV ONE (08:59)
--- NOTE | 2019-07-31 09:16 | ER Document Report ---
ED Substance Abuse / Acc. OD - General Chief Complaint: Alcohol Withdrawl Stated Complaint: SHAKING,ARM NUMBNESS Time Seen by Provider: 07/31/19 08:58 Primary Care Provider: JOSE CANDELARIO MD [Primary Care Provider] - Follow up as needed Notes: HPI: 34-year-old male with past medical history of alcohol abuse who states he last drank yesterday. He drinks 1/5 of vodka daily. He has been sober intermittently for around 30 days. He denies any and all history of alcohol withdrawal seizures. He denies any headache, neck pain, chest pain, rodney pain, fevers or vomiting. He does feel very "shaky". Patient lives with his parents who dropped him off here. ROS: See HPI All other review of systems reviewed and otherwise negative Reviewed vital signs and nursing note as charted by RN. PHYSICAL EXAM: CONSTITUTIONAL: Alert and oriented and responds appropriately to questions. Patient has obvious slight tremors to bilateral upper and lower extremities HEAD: Normocephalic; atraumatic EYES: PERRL; no nystagmus, sclerae non-icteric ENT: Normal nose; no rhinorrhea; moist mucous membranes; pharynx without lesions noted NECK: Supple without meningismus; non-tender; no cervical lymphadenopathy, no masses CARD: Regular rate and rhythm; no murmurs; symmetric distal pulses RESP: Normal chest excursion without splinting or tachypnea; breath sounds clear and equal bilaterally ABD/GI: Normal bowel sounds; non-distended; soft, non-tender BACK: The back appears normal and is non-tender to palpation EXT: Normal ROM in all joints; non-tender to palpation; no edema SKIN: No acute lesions noted NEURO: CN 2-12 intact; 5/5 bilateral upper and lower extremity strength with sensation intact to light touch PSYCH: Patient appears to be in slight withdrawal TRAVEL OUTSIDE OF THE [place] IN LAST 30 DAYS: No - Related Data Allergies/Adverse Reactions: No Known Allergies Allergy (Verified 06/14/19 03:23) Past Medical History - Social History Smoking Status: Current Some Day Smoker Family History: Reviewed & Not Pertinent Renal/ Medical History: Denies: Hx Peritoneal Dialysis Psychiatric Medical History: Reports: Hx Anxiety, Hx Attention Deficit Hyperactivity Disorder Denies: Hx Depression - Immunizations Hx Diphtheria, Pertussis, Tetanus Vaccination: No Physical Exam - Vital signs Vitals: Temp Pulse Resp BP Pulse Ox 99.1 F 91 20 169/107 H 92 07/31/19 08:43 07/31/19 08:43 07/31/19 08:43 07/31/19 08:43 07/31/19 08:43 Course - Re-evaluation Re-evalutation: 07/31/19 09:16 Given the above history and physical we will obtain basic labs as well as provide 2 mg of Ativan. Patient has no history of withdrawal seizures. After we controlled the patient's slight symptoms of withdrawal at this time we will consult behavioral health to see if we are able to help expedite placement. 07/31/19 10:44 Labs and imaging as recorded. The behavioral health team is here to help facilitate outpatient follow-up. I have repleted thiamine and folate. 07/31/19 11:21 Vital signs as recorded. Patient shakes have improved. Patient has been seen by behavioral health team and currently refuses outpatient treatment. He wants to go home to see his parents whom he lives with. He does agree to try and attempt a course/taper of Librium. He understands that he cannot take sedative medications and should not drink with this medicine. We have provided the outpatient follow-up information. - Vital Signs Vital signs: Temp Pulse Resp BP Pulse Ox 99.1 F 91 19 156/92 H 96 07/31/19 08:58 07/31/19 08:43 07/31/19 10:32 07/31/19 10:32 07/31/19 10:32 - Laboratory Result Diagrams: 07/31/19 09:15 07/31/19 09:15 Laboratory results interpreted by me: 07/31/19 07/31/19 09:15 09:15 RDW 14.1 H Sodium 132.9 L Chloride 94 L BUN 4 L Total Bilirubin 1.5 H AST 86 H ALT 65 H Total Protein 8.4 H Albumin 5.1 H Discharge - Discharge Clinical Impression: Alcohol withdrawal Qualifiers: Complication of substance-induced condition: with unspecified complication Qualified Code(s): F10.239 - Alcohol dependence with withdrawal, unspecified Condition: Stable Disposition: HOME, SELF-CARE Additional Instructions: Come back at any time that she would like for further assessment and treatment. Come back immediately with any chest pain, weakness or numbness, fevers or vomiting, seizures, or any other acute problems. Please do not mix alcohol with the medication that we have provided and please follow-up with 1 of the outpatient treatment centers we have provided. Prescriptions: Chlordiazepoxide HCl 25 mg PO ASDIR PRN 10 Days #31 capsule PRN Reason: Referrals: JOSE CANDELARIO MD [Primary Care Provider] - Follow up as needed
--- NOTE | 2019-07-31 09:43 | EKG REPORT ---
SEVERITY:- NORMAL ECG - SINUS RHYTHM ST ELEV, PROBABLE NORMAL EARLY REPOL PATTERN : Confirmed by: Rosanne Reyes MD 31-Jul-2019 09:43:26
[2019-07-31 09:50] LABS: ALBUMIN 5.1 g/dL (3.5-5.0); ALCOHOL < 10 mg/dL (NONE DETECTED); ALKALINE PHOSPHATASE 94 U/L (38-126); ANION GAP 13 (5-19); ASPARTATE AMINO TRANSFERASE 86 U/L (17-59); BILIRUBIN,DIRECT 0.1 mg/dL (0.0-0.4); BILIRUBIN,TOTAL 1.5 mg/dL (0.2-1.3); BLOOD UREA NITROGEN 4 mg/dL (7-20); CARBON DIOXIDE 26 mmol/L (22-30); CHLORIDE 94 mmol/L (98-107); GLUCOSE 97 mg/dL (75-110); POTASSIUM 3.8 mmol/L (3.6-5.0); TOTAL PROTEIN 8.4 g/dL (6.3-8.2)
[2019-07-31 09:54] LABS: ABSOLUTE EOSINOPHILS # (AUTO) 0.1 10^3/uL (0.0-0.6); ABSOLUTE LYMPHOCYTES (AUTO) 1.6 10^3/uL (0.5-4.7); ABSOLUTE MONOCYTES (AUTO) 0.5 10^3/uL (0.1-1.4); EOSINOPHILS % (AUTO) 0.8 % (0-6); TOTAL CELLS COUNTED % (AUTO) 100 %
[2019-07-31 09:59] LABS: ABSOLUTE NEUT (AUTO) 5.5 10^3/uL (1.7-8.2); BASOPHILS % (AUTO) 0.5 % (0-2); HEMATOCRIT 47.1 % (37.9-51.0); HEMOGLOBIN 16.8 g/dL (13.5-17.0); LYMPHOCYTES % (AUTO) 20.8 % (13-45); MEAN CORPUSCULAR HEMOGLOBIN 31.5 pg (27.0-33.4); MEAN CORPUSCULAR HGB CONC 35.6 g/dL (32.0-36.0); MEAN CORPUSCULAR VOLUME 88 fl (80-97); PLATELET COUNT 172 10^3/uL (150-450); RED BLOOD COUNT 5.33 10^6/uL (4.35-5.55); RED CELL DISTRIBUTION WIDTH 14.1 % (11.5-14.0); SEGMENTED NEUTROPHILS % (AUTO) 71.9 % (42-78); WHITE BLOOD COUNT 7.7 10^3/uL (4.0-10.5)
--- NOTE | 2019-07-31 10:32 | RADIOLOGY REPORT (SQ) ---
EXAM DESCRIPTION: CHEST SINGLE VIEW IMAGES COMPLETED DATE/TIME: 07/31/2019 10:14 am REASON FOR STUDY: 17; chest pain COMPARISON: Chest radiographs 06/14/2019 EXAM PARAMETERS: NUMBER OF VIEWS: One view. TECHNIQUE: Single frontal radiographic view of the chest acquired. RADIATION DOSE: NA LIMITATIONS: None. FINDINGS: LUNGS AND PLEURA: No opacities, masses or pneumothorax. No pleural effusion. MEDIASTINUM AND HILAR STRUCTURES: No masses. Contour normal. HEART AND VASCULAR STRUCTURES: Heart normal in size. Normal vasculature. BONES: No acute findings. HARDWARE: None in the chest. OTHER: No other significant finding. IMPRESSION: NO ACUTE RADIOGRAPHIC FINDING IN THE CHEST. TECHNICAL DOCUMENTATION: JOB ID: [id number] 2010 [employer]- All Rights Reserved Reading location - IP/workstation name: [email or web address]
[2019-07-31] MEDS ORDERED: THIAMINE HCL 100 MG, FOLIC ACID 1 MG in NORMAL SALINE 250 ML IV SCH (11:00)
[2019-07-31 13:17] VITALS: BP 146/95
== END 2019-07-31 13:19 | disposition home or self-care (01) ==
LOC: ER 08:40
DX: F10.239 Alcohol dependence with withdrawal, unspecified (principal); R25.1 Tremor, unspecified; R20.0 Anesthesia of skin; F17.200 Nicotine dependence, unspecified, uncomplicated
CPT/HCPCS: 93005; 99285; 96365; 36415; 80307; 85025; 80053; 71045; 93010; J3490; J2060; J3411; J7030; J7050

== ENCOUNTER 2019-09-28 08:23 | Emergency (ER) | payer SELFPAY ==
[2019-09-28 10:12] LABS: ABSOLUTE EOSINOPHILS # (AUTO) 0.1 10^3/uL (0.0-0.6); ABSOLUTE LYMPHOCYTES (AUTO) 1.6 10^3/uL (0.5-4.7); ABSOLUTE MONOCYTES (AUTO) 0.6 10^3/uL (0.1-1.4); ABSOLUTE NEUT (AUTO) 3.2 10^3/uL (1.7-8.2); BASOPHILS % (AUTO) 0.8 % (0-2); EOSINOPHILS % (AUTO) 2.7 % (0-6); HEMATOCRIT 45.4 % (37.9-51.0); HEMOGLOBIN 15.7 g/dL (13.5-17.0); LYMPHOCYTES % (AUTO) 28.6 % (13-45); MEAN CORPUSCULAR HEMOGLOBIN 31.6 pg (27.0-33.4); MEAN CORPUSCULAR HGB CONC 34.5 g/dL (32.0-36.0); MEAN CORPUSCULAR VOLUME 91 fl (80-97); MONOCYTES % (AUTO) 10.4 % (3-13); PLATELET COUNT 184 10^3/uL (150-450); RED BLOOD COUNT 4.97 10^6/uL (4.35-5.55); RED CELL DISTRIBUTION WIDTH 14.7 % (11.5-14.0); SEGMENTED NEUTROPHILS % (AUTO) 57.5 % (42-78); TOTAL CELLS COUNTED % (AUTO) 100 %; WHITE BLOOD COUNT 5.5 10^3/uL (4.0-10.5)
--- NOTE | 2019-09-28 10:31 | ER Document Report ---
ED Medical Screen (RME) - General Chief Complaint: Alcohol Withdrawl Stated Complaint: ETOH WITHDRAWL Time Seen by Provider: 09/28/19 10:09 Primary Care Provider: JOSE CANDELARIO MD [Primary Care Provider] - Follow up as needed TRAVEL OUTSIDE OF THE U.S. IN LAST 30 DAYS: No - HPI Notes: 09/28/19 10:28 34 ND with history of alcoholism presents emergency room for complaints of left- sided chest pain that started at midnight, reports it travels to his jaw shoulder and arm. Reports episodes last for 5 to 10 minutes. Reports pain is sharp and piercing. Patient also states he intermittently throwing up blood, reports nausea but denies any vomiting. Patient also states that last night he did pass out, states that he did hit his head. States his last drink was yesterday, states he drank 1/5 of vodka. History of detox 2 years ago. Patient is concerned that he may be going through withdrawal. Denies any shortness of breath, abdominal pain, headache, blurred vision double vision or loss of vision. Patient is not any blood thinners. 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 I have greeted and performed a rapid initial assessment of this patient. A comprehensive ED assessment and evaluation of the patient, analysis of test results and completion of the medical decision making process will be conducted by additional ED providers. PHYSICAL EXAMINATION: GENERAL: Well-appearing, well-nourished and in no acute distress. HEAD: Atraumatic, normocephalic. EYES: Pupils equal round extraocular movements intact, conjunctiva are normal. NECK: Normal range of motion CV: s1, s2 regular LUNGS: No respiratory distress NEUROLOGICAL: Normal speech SKIN: Warm, Dry, normal turgor, no rashes or lesions noted. 09/28/19 10:30 - Related Data Allergies/Adverse Reactions: No Known Allergies Allergy (Verified 06/14/19 03:23) Past Medical History - Social History Frequency of alcohol use: Heavy Drug Abuse: None Renal/ Medical History: Denies: Hx Peritoneal Dialysis Psychiatric Medical History: Reports: Hx Anxiety, Hx Attention Deficit Hyperactivity Disorder Denies: Hx Depression - Immunizations Hx Diphtheria, Pertussis, Tetanus Vaccination: No Physical Exam - Vital signs Vitals: Temp Pulse Resp BP Pulse Ox 98.5 F 85 18 132/92 H 99 09/28/19 08:27 08/11/20 08:27 09/28/19 08:27 09/28/19 08:27 09/28/19 08:27 Course - Vital Signs Vital signs: Temp Pulse Resp BP Pulse Ox 98.5 F 85 18 132/92 H 99 09/28/19 08:27 09/28/19 08:27 09/28/19 08:27 09/28/19 08:27 09/28/19 08:27 - Laboratory Result Diagrams: 09/28/19 09:45 09/28/19 09:45 Laboratory results interpreted by me: 09/28/19 09:45 RDW 14.7 H Doctor's Discharge - Discharge Referrals: JOSE CANDELARIO MD [Primary Care Provider] - Follow up as needed
[2019-09-28 10:46] LABS: ALBUMIN 4.3 g/dL (3.5-5.0); ALKALINE PHOSPHATASE 58 U/L (38-126); ANION GAP 8 (5-19); ASPARTATE AMINO TRANSFERASE 38 U/L (17-59); BILIRUBIN,TOTAL 0.5 mg/dL (0.2-1.3); BLOOD UREA NITROGEN 9 mg/dL (7-20); CALCIUM 9.1 mg/dL (8.4-10.2); CARBON DIOXIDE 25 mmol/L (22-30); CHLORIDE 105 mmol/L (98-107); GLUCOSE 87 mg/dL (75-110); POTASSIUM 4.3 mmol/L (3.6-5.0); TOTAL PROTEIN 7.8 g/dL (6.3-8.2)
--- NOTE | 2019-09-28 10:52 | RADIOLOGY REPORT (SQ) ---
EXAM DESCRIPTION: CHEST SINGLE VIEW IMAGES COMPLETED DATE/TIME: 09/28/2019 10:42 am REASON FOR STUDY: cp started last night COMPARISON: 07/31/2019. EXAM PARAMETERS: NUMBER OF VIEWS: One view. TECHNIQUE: Single frontal radiographic view of the chest acquired. RADIATION DOSE: NA LIMITATIONS: None. FINDINGS: LUNGS AND PLEURA: No opacities, masses or pneumothorax. No pleural effusion. MEDIASTINUM AND HILAR STRUCTURES: No masses. Contour normal. HEART AND VASCULAR STRUCTURES: Heart normal in size. Normal vasculature. BONES: No acute findings. HARDWARE: None in the chest. OTHER: No other significant finding. IMPRESSION: NO ACUTE RADIOGRAPHIC FINDING IN THE CHEST. TECHNICAL DOCUMENTATION: JOB ID: [id number] 2010 [employer]- All Rights Reserved Reading location - IP/workstation name: [email or web address]
[2019-09-28] MEDS ORDERED: CLONIDINE HCL 0.1 MG TABLET PO ONE (11:06)
[2019-09-28] MEDS ORDERED: DEXTROSE 5%-LACTATED RINGERS 1,000 ML IV ONE (11:07)
--- NOTE | 2019-09-28 11:30 | RADIOLOGY REPORT (SQ) ---
EXAM DESCRIPTION: CT HEAD WITHOUT IMAGES COMPLETED DATE/TIME: 09/28/2019 11:22 am REASON FOR STUDY: Syncopal event last night, unwitnessed COMPARISON: 05/02/2019. TECHNIQUE: Axial images acquired through the brain without intravenous contrast. Images reviewed wi th bone, brain and subdural windows. Additional sagittal and coronal reconstructions were generated. Images stored on PACS. All CT scanners at this facility use dose modulation, iterative reconstruction, and/or weight based d osing when appropriate to reduce radiation dose to as low as reasonably achievable (ALARA). [facility]: Dose Right [facility]: CareDose [facility]: Dose Right [facility]: Teradose 4D [facility]: blabfeed RADIATION DOSE: CT Rad equipment meets quality standard of care and radiation dose reduction techniq ues were employed. CTDIvol: 53.2 mGy. DLP: 1017 mGy-cm. mGy. LIMITATIONS: None. FINDINGS: VENTRICLES: Normal size and contour. CEREBRUM: No masses. No hemorrhage. No midline shift. No evidence for acute infarction. Normal gra y/white matter differentiation. No areas of low density in the white matter. CEREBELLUM: No masses. No hemorrhage. No alteration of density. No evidence for acute infarction. EXTRAAXIAL SPACES: No fluid collections. No masses. ORBITS AND GLOBE: No intra- or extraconal masses. Normal contour of globe without masses. CALVARIUM: No fracture. PARANASAL SINUSES: Mild generalized chronic sinus disease. SOFT TISSUES: No mass or hematoma. OTHER: No other significant finding. IMPRESSION: NORMAL BRAIN CT WITHOUT CONTRAST. EVIDENCE OF ACUTE STROKE: NO. COMMENT: Quality ID # [id number]: Final reports with documentation of one or more dose reduction techniques (e.g., Automated exposure control, adjustment of the mA and/or kV according to patient size, use of iterative reconstruction technique) TECHNICAL DOCUMENTATION: JOB ID: [id number] 2010 [employer]- All Rights Reserved Reading location - IP/workstation name: [email or web address]
--- NOTE | 2019-09-28 11:32 | ER Document Report ---
Entered by BAKARI GREENWOOD SCRIBE 09/28/19 1114 Acting as scribe for:WOO CHAMBERS MD ED General - General Chief Complaint: Alcohol Withdrawl Stated Complaint: ETOH WITHDRAWL Time Seen by Provider: 09/28/19 10:09 Primary Care Provider: JOSE CANDELARIO MD [Primary Care Provider] - Follow up as needed Information source: Patient Notes: This 34 year old male patient presents to the emergency department today with complaints of alcohol withdrawal. He reports drinking a fifth of vodka "late last night but not after midnight". He also complains of constant chest pain, facial numbness, left arm numbness which is a chronic issue for him, "difficulty breathing" that he further describes as "feeling like his chest is tight and his lungs aren't filling up", vomiting up blood, and a syncopal event. Patient is not on blood thinning medications. Patient states he is on lorazepam twice a day although pharmacy records indicate he is on lorazepam 3 times daily. He i ndicates that he will "call the [facility]" to see about getting placement for rehab. TRAVEL OUTSIDE OF THE U.S. IN LAST 30 DAYS: No - Related Data Allergies/Adverse Reactions: No Known Allergies Allergy (Verified 06/14/19 03:23) Past Medical History - General Information source: Patient - Social History Smoking Status: Current Every Day Smoker Cigarette use (# per day): Yes - 1 ppd Frequency of alcohol use: Heavy Drug Abuse: None Family History: Reviewed & Not Pertinent Psychiatric Medical History: Reports: Hx Anxiety, Hx Attention Deficit Hyperactivity Disorder Surgical Hx: Negative - Immunizations Hx Diphtheria, Pertussis, Tetanus Vaccination: No Review of Systems - Review of Systems Constitutional: See HPI, Other - alcohol withdrawal EENT: No symptoms reported Cardiovascular: See HPI, Chest pain, Syncope Respiratory: See HPI, Short of breath Gastrointestinal: See HPI, Vomiting, Blood in vomit Genitourinary: No symptoms reported Male Genitourinary: No symptoms reported Musculoskeletal: No symptoms reported Skin: No symptoms reported Hematologic/Lymphatic: No symptoms reported Neurological/Psychological: No symptoms reported -: Yes All other systems reviewed and negative Physical Exam - Vital signs Vitals: Temp Pulse Resp BP Pulse Ox 98.5 F 85 18 132/92 H 99 09/28/19 08:27 09/28/19 08:27 09/28/19 08:27 09/28/19 08:27 09/28/19 08:27 - Notes Notes: Physical Exam: General: Alert, appears well. HEENT: Normocephalic. Atraumatic. PERRL. Extraocular movements intact. Oropharynx clear. Neck: Supple. Non-tender. Respiratory: No respiratory distress. Clear and equal breath sounds bilaterally. No tachypnea. Says he feels like he cannot fill up his lungs but he is saturating 99% on room air. Cardiovascular: Regular rate and rhythm. Pulse is 82, not tachycardic. Abdominal: Normal Inspection. Non-tender. No distension. Normal Bowel Sounds. Back: No gross abnormalities. Extremities: Moves all four extremities. Upper extremities: Normal inspection. Normal ROM. Lower extremities: Normal inspection. No edema. Normal ROM. Neurological: Normal cognition. AAOx4. Normal speech. Psychological: Normal affect. Normal Mood. Skin: Warm. Dry. Normal color. Course - Re-evaluation Re-evalutation: 09/28/19 11:55 The patient claims that he is in alcohol withdrawal however he is not sweating, his pulse is 80, he states he is short of breath and feels like he cannot feel his lungs up with the air, but his pulse ox is 98% on room air at this time. I suspect the reason he is not showing evidence of withdrawal is the Ativan he takes 3 times daily. We will discharge him home with clonidine to take to help prevent him from having withdrawal symptoms if he decides to pursue a course of sobriety. - Vital Signs Vital signs: Temp Pulse Resp BP Pulse Ox 98.5 F 85 16 152/99 H 100 09/28/19 08:27 09/28/19 08:27 09/28/19 11:00 09/28/19 10:00 09/28/19 11:00 - Laboratory Result Diagrams: 09/28/19 09:45 09/28/19 09:45 Laboratory results interpreted by me: 09/28/19 09/28/19 09:45 11:30 RDW 14.7 H Urine Protein 30 H - Diagnostic Test Radiology reviewed: Image reviewed, Reports reviewed - Chest x-ray is unremarkable. CT scan of the head and cervical spine are unremarkable. - EKG Interpretation by Me EKG shows normal: Sinus rhythm, Tyler, Intervals, QRS Complexes, ST-T Waves Rate: Normal - 81 Rhythm: NSR P Waves: LAE When compared to previous EKG there are: No significant change Discharge - Discharge Clinical Impression: Chronic alcohol abuse, Shortness of breath Withdrawal symptoms, alcohol Qualifiers: Complication of substance-induced condition: uncomplicated Qualified Code(s): F10.230 - Alcohol dependence with withdrawal, uncomplicated Episode of syncope Qualifiers: Syncope type: unspecified Qualified Code(s): R55 - Syncope and collapse Condition: Stable Disposition: HOME, SELF-CARE Additional Instructions: Alcohol Withdrawal Your symptoms are caused by alcohol withdrawal. After a period of frequent drinking, the brain and body are changed by the alcohol. When you quit or reduce your drinking, the nervous system becomes unstable. Withdrawal symptoms can start a few hours after your last drink, but sometimes don't begin until a couple of days later. Symptoms can include shakiness, sweating, insomnia, nausea, vomiting, fearfulness, hallucinations, and seizures. In addition to the acute effects of alcohol withdrawal, we often have to deal with the medical effects of alcoholism. These problems often include dehydration, stomach irritation, intestinal bleeding, low blood sugar, liver dis ease, and pancreas inflammation. Treatment for alcohol withdrawal includes mild sedatives, vitamins, and fluids. You need to be with someone who can help if symptoms become severe. Many patients can withdraw at home. Admission to the hospital or a detox facility may be necessary if withdrawal symptoms are severe and uncontrollable. Abstaining from alcohol is the only effective long-term treatment. If you start drinking again, you will not be able to control yourself after the first drink. Treatment programs are available. In addition, many alcoholics benefit from Alcoholics Anonymous or other support groups available through your counselor or jew science consultant. AL-ANON and ALA-TEEN are support groups for friends and family members of an alcoholic. Go to the emergency room if you develop persistent vomiting, severe abdominal pain, fever, shortness of breath, hallucinations, uncontrollable tremors, or seizures. Continue your current medications, to include the Lorazepam you are prescribed 3 times daily. Add the clonidine as prescribed to help reduce alcohol withdrawal symptoms. Consider entering a detox program to get help with your drinking problem. Follow-up with your primary care provider. RETURN TO THE EMERGENCY ROOM IF ANY NEW OR WORSENING SYMPTOMS. Prescriptions: RX: Clonidine HCl [Catapres 0.1 mg Tablet] 0.1 mg PO Q8 #15 tablet Referrals: JOSE CANDELARIO MD [Primary Care Provider] - Follow up as needed I personally performed the services described in the documentation, reviewed and edited the documentation which was dictated to the scribe in my presence, and it accurately records my words and actions.
--- NOTE | 2019-09-28 11:33 | RADIOLOGY REPORT (SQ) ---
EXAM DESCRIPTION: CT CERVICAL SPINE WITHOUT IMAGES COMPLETED DATE/TIME: 09/28/2019 11:22 am REASON FOR STUDY: Syncopal event last night, unwitnessed COMPARISON: 05/02/2019. TECHNIQUE: Axial images acquired through the cervical spine without intravenous contrast. Images re viewed with lung, soft tissue and bone windows. Reconstructed coronal and sagittal MPR images review ed. Images stored on PACS. All CT scanners at this facility use dose modulation, iterative reconstruction, and/or weight based d osing when appropriate to reduce radiation dose to as low as reasonably achievable (ALARA). [facility]: Dose Right [facility]: CareDose [facility]: Dose Right [facility]: Teradose 4D [facility]: [employer] RADIATION DOSE: CT Rad equipment meets quality standard of care and radiation dose reduction techniq ues were employed. CTDIvol: 17.3 mGy. DLP: 370 mGy-cm. mGy. LIMITATIONS: None. FINDINGS: ALIGNMENT: Anatomic. MINERALIZATION: Normal. VERTEBRAL BODIES: No fractures or dislocation. DISCS: No significant disc disease. FACETS, LATERAL MASSES, POSTERIOR ELEMENTS: No fractures. No dislocation. No acute findings. HARDWARE: None in the spine. VISUALIZED RIBS: No fractures. LUNG APICES AND SOFT TISSUES: No significant or acute findings. OTHER: No other significant finding. IMPRESSION: NO ACUTE OR SIGNIFICANT FINDINGS IN THE CERVICAL SPINE. TECHNICAL DOCUMENTATION: JOB ID: [id number] Quality ID # [id number]: Final reports with documentation of one or more dose reduction techniques (e.g., Au tomated exposure control, adjustment of the mA and/or kV according to patient size, use of iterative reconstruction technique) 2010 [email or web address]- All Rights Reserved Reading location - IP/workstation name: [email or web address]
[2019-09-28 11:53] LABS: APPEARANCE,URINE CLEAR; BILIRUBIN,URINE NEGATIVE (NEGATIVE); COLOR,URINE YELLOW; GLUCOSE, URINE NEGATIVE (NEGATIVE); KETONES,URINE NEGATIVE (NEGATIVE); LEUKOCYTE ESTERASE,URINE NEGATIVE (NEGATIVE); NITRITE,URINE NEGATIVE (NEGATIVE); PROTEIN,URINE 30 mg/dL (NEGATIVE); URINE SPECIFIC GRAVITY 1.018; UROBILINOGEN,URINE NEGATIVE mg/dL (<2.0)
[2019-09-28 12:16] LABS: URINE AMPHETAMINES SCREEN NEGATIVE; URINE BARBITURATES SCREEN NEGATIVE; URINE BENZODIAZEPINES SCREEN NEGATIVE; URINE COCAINE SCREEN NEGATIVE; URINE MARIJUANA (THC) SCREEN NEGATIVE; URINE METHADONE SCREEN NEGATIVE; URINE PHENCYCLIDINE SCREEN NEGATIVE
[2019-09-28 12:19] LABS: FOLATE 4.68 ng/mL (>2.76)
[2019-09-28 13:37] VITALS: BP 130/87
--- NOTE | 2019-09-28 19:27 | EKG REPORT ---
SEVERITY:- BORDERLINE ECG - SINUS RHYTHM PROBABLE LEFT ATRIAL ABNORMALITY : Confirmed by: Tariq Guthrie MD 28-Sep-2019 19:27:21
== END 2019-09-28 13:37 | disposition home or self-care (01) ==
LOC: ER 08:23
DX: F10.230 Alcohol dependence with withdrawal, uncomplicated (principal); R06.02 Shortness of breath; R07.9 Chest pain, unspecified; R20.0 Anesthesia of skin; K92.0 Hematemesis; R55 Syncope and collapse; F41.9 Anxiety disorder, unspecified; Z79.899 Other long term (current) drug therapy; F17.210 Nicotine dependence, cigarettes, uncomplicated
CPT/HCPCS: 93005; 99285; 36415; 80307 ×2; 82550; 82746; 83735; 85025; 80053; 81001; 84484; 71045; 70450; 72125; 93010; J7121

== ENCOUNTER 2019-10-24 23:16 | Emergency (ER) | payer SELFPAY ==
[2019-10-24 23:26] VITALS: BP 173/98
--- NOTE | 2019-10-24 23:26 | ER Document Report ---
ED Medical Screen (RME) - General Chief Complaint: Shortness Of Breath Stated Complaint: SHORTNESS OF BREATH,CHEST PAIN,VOMITING BLOOD Time Seen by Provider: 10/24/19 23:20 Primary Care Provider: JOSE CANDELARIO MD [Primary Care Provider] - Follow up as needed TRAVEL OUTSIDE OF THE [place].S. IN LAST 30 DAYS: No - HPI Notes: 10/24/19 23:25 34-year-old male to the emergency department with complaints of progressively worsening shortness of breath, chest pain, vomiting blood for the past 2 days. He states that he feels like he cannot breathe very well at all. He denies any recent travel, fevers, headache. He does admit to body aches and sore throat. He states he does not have any known COVID-19 exposures. Noted tachycardia on vital signs upon arrival. I performed a brief medical screening exam on the patient determined that the patient needs further evaluation and management by main side provider. I have placed initial orders to help expedite care. - Related Data Allergies/Adverse Reactions: No Known Allergies Allergy (Verified 06/14/19 03:23) Past Medical History Renal/ Medical History: Denies: Hx Peritoneal Dialysis Psychiatric Medical History: Reports: Hx Anxiety, Hx Attention Deficit Hyperactivity Disorder Denies: Hx Depression - Immunizations Hx Diphtheria, Pertussis, Tetanus Vaccination: No Doctor's Discharge - Discharge Referrals: JOSE CANDELARIO MD [Primary Care Provider] - Follow up as needed
[2019-10-25 00:58] LABS: ABSOLUTE BASOPHILS # (AUTO) 0.1 10^3/uL (0.0-0.2); ABSOLUTE EOSINOPHILS # (AUTO) 0.2 10^3/uL (0.0-0.6); ABSOLUTE LYMPHOCYTES (AUTO) 3.6 10^3/uL (0.5-4.7); ABSOLUTE NEUT (AUTO) 4.6 10^3/uL (1.7-8.2); BASOPHILS % (AUTO) 0.8 % (0-2); EOSINOPHILS % (AUTO) 1.8 % (0-6); HEMATOCRIT 46.7 % (37.9-51.0); HEMOGLOBIN 16.6 g/dL (13.5-17.0); LYMPHOCYTES % (AUTO) 38.4 % (13-45); MEAN CORPUSCULAR HGB CONC 35.6 g/dL (32.0-36.0); MEAN CORPUSCULAR VOLUME 90 fl (80-97); MONOCYTES % (AUTO) 10.5 % (3-13); PLATELET COUNT 201 10^3/uL (150-450); RED CELL DISTRIBUTION WIDTH 14.4 % (11.5-14.0); SEGMENTED NEUTROPHILS % (AUTO) 48.5 % (42-78); TOTAL CELLS COUNTED % (AUTO) 100 %; WHITE BLOOD COUNT 9.4 10^3/uL (4.0-10.5)
[2019-10-25 01:14] LABS: ALKALINE PHOSPHATASE 88 U/L (38-126); ANION GAP 16 (5-19); ASPARTATE AMINO TRANSFERASE 52 U/L (17-59); BILIRUBIN,DIRECT 0.3 mg/dL (0.0-0.4); BILIRUBIN,TOTAL 0.7 mg/dL (0.2-1.3); BLOOD UREA NITROGEN 15 mg/dL (7-20); CALCIUM 9.8 mg/dL (8.4-10.2); CARBON DIOXIDE 27 mmol/L (22-30); CHLORIDE 96 mmol/L (98-107); GLUCOSE 85 mg/dL (75-110); TOTAL PROTEIN 8.2 g/dL (6.3-8.2)
--- NOTE | 2019-10-25 02:11 | RADIOLOGY REPORT (SQ) ---
EXAM DESCRIPTION: XR CHEST 1 VIEW COMPLETED DATE/TME: 10/24/2019 23:23 CLINICAL HISTORY: 34 years, Male, SOB COMPARISON: 09/28/2019 chest NUMBER OF VIEWS: 1 TECHNIQUE: Portable chest LIMITATIONS: None. FINDINGS: The heart size is normal. Lungs are clear. No pneumothorax IMPRESSION: No acute cardiopulmonary process copyright 2010 [employer]- All Rights Reserved
[2019-10-25] MEDS ORDERED: ONDANSETRON HCL INJ/PF 4 MG/2 ML SDV IV ONE (02:35)
[2019-10-25] MEDS ORDERED: NORMAL SALINE 1000 ML 1,000 ML IV ONE (02:35)
[2019-10-25] MEDS ORDERED: SUCRALFATE 1 GM TABLET PO ONE (02:35)
[2019-10-25] MEDS ORDERED: HYDROCODONE/ACETAMINOPHEN 5-325 MG TABLET PO ONE (02:35)
[2019-10-25] MEDS ORDERED: ONDANSETRON ODT 4 MG TAB (6 TAB/ER DISP) PO PRN (04:50)
--- NOTE | 2019-10-25 04:55 | ER Document Report ---
ED General - General Chief Complaint: Shortness Of Breath Stated Complaint: SHORTNESS OF BREATH,CHEST PAIN,VOMITING BLOOD Time Seen by Provider: 10/24/19 23:20 Primary Care Provider: JOSE CANDELARIO MD [Primary Care Provider] - Follow up as needed Notes: Patient is a 34-year-old male who comes emergency department for chief complaint of cough, body aches, generalized upper abdominal pain, several episodes of vomiting over the day. Patient states that once when he vomited he had some flecks of blood mixed in but denies vomiting pure blood or any other hematemesis. He reports normal bowel movements. Symptoms started 2 days ago. He denies recent travel, sick contacts, headache, chest pain, difficulty breathing. Patient states that he drinks alcohol heavily, denies recreational drugs he does smoke. He denies any prescribe daily medications or surgeries. TRAVEL OUTSIDE OF THE [place] IN LAST 30 DAYS: No - Related Data Allergies/Adverse Reactions: No Known Allergies Allergy (Verified 06/14/19 03:23) Home Medications: larazepam Past Medical History - General Information source: Patient - Social History Smoking Status: Current Every Day Smoker Chew tobacco use (# tins/day): No Frequency of alcohol use: Heavy Drug Abuse: None Lives with: Family Family History: Reviewed & Not Pertinent Renal/ Medical History: Denies: Hx Peritoneal Dialysis Psychiatric Medical History: Reports: Hx Anxiety, Hx Attention Deficit Hyperactivity Disorder Denies: Hx Depression - Immunizations Hx Diphtheria, Pertussis, Tetanus Vaccination: Yes Review of Systems - Review of Systems Constitutional: See HPI EENT: No symptoms reported Cardiovascular: See HPI Respiratory: See HPI Gastrointestinal: See HPI Genitourinary: No symptoms reported Male Genitourinary: No symptoms reported Musculoskeletal: No symptoms reported Skin: No symptoms reported Hematologic/Lymphatic: No symptoms reported Neurological/Psychological: No symptoms reported Physical Exam - Vital signs Vitals: Temp Pulse Resp BP Pulse Ox 98.8 F 100 18 173/98 H 100 10/24/19 23:25 10/24/19 23:25 10/24/19 23:25 10/24/19 23:25 10/24/19 23:25 - Notes Notes: GENERAL: Alert, interacts well. No acute distress. HEAD: Normocephalic, atraumatic. EYES: Pupils equal, round, and reactive to light. Extraocular movements intact. ENT: Oral mucosa dry no nuchal rigidity., tongue midline. Oropharynx unre markable. Airway patent. NECK: Full range of motion. Supple. Trachea midline. No lymphadenopathy. LUNGS: Clear to auscultation bilaterally, no wheezes, rales, or rhonchi. No respiratory distress. Non-tender chest wall. Occasional episodes of nonproductive cough. HEART: Regular rate and rhythm. No murmur ABDOMEN: Mild generalized upper abdominal tenderness, no guarding, no rigidity, no distention. Otherwise unremarkable. EXTREMITIES: Moves all 4 extremities spontaneously. No edema, normal radial and dorsalis pedis pulses bilaterally. No cyanosis. BACK: no cervical, thoracic, lumbar midline tenderness. No saddle anesthesia, normal distal neurovascular exam. Moves all extremities in full range of motion. NEUROLOGICAL: Alert and oriented x3. Normal speech. Cranial nerves II through XII grossly intact. Strength 5/5 in all extremities. PSYCH: Normal affect, normal mood. SKIN: Warm, dry, normal turgor. No rashes or lesions noted. Course - Re-evaluation Re-evalutation: Patient with intermittent coughing episodes, some upper abdominal pain, however overall he is well-appearing on my exam and he is not tachycardic. Patient given IV fluids, nausea medication, symptom management. After this on reevaluation patient was given p.o. and tolerated this without any difficulty. Patient states he feels much better. CBC, chemistry, lipase unremarkable, urinalysis unremarkable, chest x-ray unremarkable. Patient patient's syndrome of symptoms I strongly suspect a viral illness. I discussed all details with patient. Decision was made to test for COVID-19, discussed quarantine, discussed alcohol detox follow-up, discussed return precautions in detail. Patient states appreciation and agreement with plan. Stable and well-appearing at time of discharge. - Vital Signs Vital signs: Temp Pulse Resp BP Pulse Ox 98.8 F 100 18 173/98 H 100 10/24/19 23:25 10/24/19 23:25 10/24/19 23:25 10/24/19 23:25 10/24/19 23:25 - Laboratory Result Diagrams: 10/25/19 00:45 10/25/19 00:45 Laboratory results interpreted by me: 10/25/19 10/25/19 00:45 00:45 RDW 14.4 H Chloride 96 L Discharge - Discharge Clinical Impression: Cough, Chills Nausea and vomiting Qualifiers: Vomiting type: unspecified Vomiting Intractability: non-intractable Qualified Code(s): R11.2 - Nausea with vomiting, unspecified Condition: Stable Disposition: HOME, SELF-CARE Additional Instructions: Your work-up does not show any concerning findings at this time, however your symptoms are very suggestive of a viral illness. You have been tested for COVID-19, please quarantine until you receive your results, see additional instructions listed below. Take Phenergan for nausea, I recommend the Carafate and famotidine because of gastritis as we discussed, start with clear fluids and bland diet. Avoid/reduce alcohol, see detox follow-up for additional treatment. Return if you worsen including uncontrolled vomiting, severe abdominal pain, spiking fever, difficulty breathing, or any other concerning symptoms. As a person under investigation for COVID-19, the [place] Department of Health and Human Services (division on public health) advises you to adhere to the following guidance until your test results are reported to you. If your test result is positive, you will receive additional information from your provider and your local health department at that time. Remain at home until you are cleared by the health provider or public health authorities. Keep a log of visitors to your home, notify any visitors to your home of your isolation status. If you plan to move to a new address or leave the [facility], notify the local health department in your County. Call your Doctor or seek care if you have an urgent medical need. Before seeking medical care, call him to get instructions from the provider before arriving at the medical office, clinic, or hospital. Notify them that you are being tested for the virus (COVID-19) so that arrangements can be made, as necessary, to prevent transmission to others in the healthcare setting. Next, notify the local health department in your county. If a medical emergency arises and you need to call 911, inform the first responders that you are being tested for the virus that causes COVID-19. Next, notify the local health department in your county. [facility] [address] , [place] [address] Hours: Open 24 hours Prescriptions: Sucralfate [Carafate 1 gm Tablet] 1 gm PO QID #20 tablet Famotidine [Pepcid 20 mg Tablet] 20 mg PO BID #20 tablet Promethazine HCl [Phenergan 25 mg Tablet] 25 mg PO Q6H PRN #20 tablet PRN Reason: Referrals: JOSE CANDELARIO MD [Primary Care Provider] - Follow up as needed
--- NOTE | 2019-10-25 06:32 | EKG REPORT ---
SEVERITY:- NORMAL ECG - SINUS RHYTHM : Confirmed by: Adam Lobo MD 25-Oct-2019 06:31:27
== END 2019-10-25 05:08 | disposition home or self-care (01) ==
LOC: ER 23:16
DX: R11.2 Nausea with vomiting, unspecified (principal); R05 Cough; R68.83 Chills (without fever); R10.11 Right upper quadrant pain; R10.12 Left upper quadrant pain; R10.13 Epigastric pain; R10.811 Right upper quadrant abdominal tenderness; R10.812 Left upper quadrant abdominal tenderness; R10.816 Epigastric abdominal tenderness; F17.200 Nicotine dependence, unspecified, uncomplicated; F41.9 Anxiety disorder, unspecified; Z20.828 Contact with and (suspected) exposure to other viral communicable diseases
CPT/HCPCS: 93005; 99285; 96361; 96374; 36415; 83690; 83735; 85025; 87635; 80053; 84484; 71045; 93010; J2405; J7030; C9803

== ENCOUNTER 2019-10-25 09:43 | Emergency (ER) | payer SELFPAY ==
--- NOTE | 2019-10-25 11:17 | RADIOLOGY REPORT (SQ) ---
EXAM DESCRIPTION: CT HEAD WITHOUT IMAGES COMPLETED DATE/TIME: 10/25/2019 11:04 am REASON FOR STUDY: right occipital headache/right ear pain COMPARISON: 09/28/2019 TECHNIQUE: Axial images acquired through the brain without intravenous contrast. Images reviewed wi th bone, brain and subdural windows. Additional sagittal and coronal reconstructions were generated. Images stored on PACS. All CT scanners at this facility use dose modulation, iterative reconstruction, and/or weight based d osing when appropriate to reduce radiation dose to as low as reasonably achievable (ALARA). [facility]: Dose Right [facility]: CareDose [facility]: Dose Right [facility]: Teradose 4D [facility]: Smart MeetBall RADIATION DOSE: CT Rad equipment meets quality standard of care and radiation dose reduction techniq ues were employed. CTDIvol: 53.2 mGy. DLP: 1070 mGy-cm. mGy. LIMITATIONS: None. FINDINGS: VENTRICLES: Normal size and contour. CEREBRUM: No masses. No hemorrhage. No midline shift. No evidence for acute infarction. Normal gra y/white matter differentiation. No areas of low density in the white matter. CEREBELLUM: No masses. No hemorrhage. No alteration of density. No evidence for acute infarction. EXTRAAXIAL SPACES: No fluid collections. No masses. ORBITS AND GLOBE: No intra- or extraconal masses. Normal contour of globe without masses. CALVARIUM: No fracture. PARANASAL SINUSES: Mucosal thickening particularly in the left maxillary sinus. Mild opacity in the sphenoid and ethmoid air cells as well. No fluid levels to suggest acute infection. Chronic appeara nce. SOFT TISSUES: No mass or hematoma. OTHER: No other significant finding. IMPRESSION: 1. No acute intracranial abnormality. 2. Chronic paranasal sinus disease. EVIDENCE OF ACUTE STROKE: NO. COMMENT: Quality ID # [id number]: Final reports with documentation of one or more dose reduction techniques (e.g., Automated exposure control, adjustment of the mA and/or kV according to patient size, use of iterative reconstruction technique) TECHNICAL DOCUMENTATION: JOB ID: [id number] 2010 [employer]- All Rights Reserved Reading location - IP/workstation name: [email or web address]
--- NOTE | 2019-10-25 13:08 | ER Document Report ---
Entered by DIANE YIP SCRIBE 10/25/19 1045 Acting as scribe for:ARTHUR DEMARCO MD ED General - General Chief Complaint: Alcohol Withdrawl Stated Complaint: ALCOHOL WITHDRAWL Time Seen by Provider: 10/25/19 10:03 Primary Care Provider: JOSE CANDELARIO MD [Primary Care Provider] - Follow up as needed Mode of Arrival: Ambulatory Information source: Patient Notes: This 34 year old male patient with a history of chronic alcohol abuse presents to the ED today with multiple complaints. Per nursing, patient reports that he is going through alcohol withdrawal and that he drinks about a fifth of ETOH every day, last drink was yesterday. Patient was seen here yesterday with the same complaints and had a normal work-up. Patient was treated symptomatically and tested for COVID at that time. He now reports a right occipital headache, right ear pain, sore throat, runny nose, blurred vision, and dizziness. TRAVEL OUTSIDE OF THE [place] IN LAST 30 DAYS: No - Related Data Allergies/Adverse Reactions: No Known Allergies Allergy (Verified 10/25/19 10:35) Past Medical History - General Information source: [facility] Records - Social History Smoking Status: Current Every Day Smoker Smoking Education Provided: No Frequency of alcohol use: Heavy Drug Abuse: None Family History: Reviewed & Not Pertinent Patient has homicidal ideation: No Psychiatric Medical History: Reports: Hx Anxiety, Hx Attention Deficit Hyperactivity Disorder Past Surgical History: Reports: Hx Oral Surgery - wisdom teeth - Immunizations Hx Diphtheria, Pertussis, Tetanus Vaccination: Yes Review of Systems - Review of Systems Constitutional: See HPI, Other - ETOH withdrawal EENT: See HPI, Blurred vision, Ear pain, Nose discharge, Throat pain Cardiovascular: See HPI, Dizziness Respiratory: No symptoms reported Gastrointestinal: No symptoms reported Genitourinary: No symptoms reported Male Genitourinary: No symptoms reported Musculoskeletal: No symptoms reported Skin: No symptoms reported Hematologic/Lymphatic: No symptoms reported Neurological/Psychological: See HPI, Headaches -: Yes All other systems reviewed and negative Physical Exam - Vital signs Vitals: Temp Pulse Resp BP Pulse Ox 99.1 F 76 20 155/91 H 100 10/25/19 09:52 10/25/19 09:52 10/25/19 09:52 10/25/19 09:52 10/25/19 09:52 - General General appearance: Alert In distress: None - HEENT Head: Normocephalic, Atraumatic Eyes: Normal Extraocular movements intact: Yes Pupils: PERRL Tympanic membrane: No: Normal - Fluid behind bilateral TMs, right worse than left Sinus: Frontal, Tenderness Nasal: Other - Nasal mucosa is boggy. No: Bloody discharge, Purulent discharge Pharynx: Erythema - and mild edema. No: Exudate - Respiratory Respiratory status: No respiratory distress Chest status: Nontender Breath sounds: Normal Chest palpation: Normal - Cardiovascular Rhythm: Regular Heart sounds: Normal auscultation, S1 appreciated, S2 appreciated Murmur: No Friction rub: No Gallop: None auscultated - Abdominal Inspection: Normal Distension: No distension Bowel sounds: Normal Tenderness: Nontender - Abdomen soft Organomegaly: No organomegaly - Back Back: Normal, Nontender - Extremities General upper extremity: Normal inspection General lower extremity: Normal inspection. No: Edema - Neurological Neuro grossly intact: Yes Orientation: AAOx4 [place] Coma Scale Eye Opening: Spontaneous [place]ira Coma Scale Verbal: Oriented [place] Coma Scale Motor: Obeys Commands [place] Coma Scale Total: 15 - Psychological Associated symptoms: Depressed, Flat affect - Skin Skin Temperature: Warm Skin Moisture: Dry Skin Color: Normal Course - Re-evaluation Re-evalutation: 10/25/19 12:52 Patient resting comfortably not showing signs of distress. Discussed patient's results of his strep screen which is negative and also the CT scan of his head which shows he has chronic sinus disease with no other acute process abnormality noted. No evidence of stroke no bleed no tumor no mass. - Vital Signs Vital signs: Temp Pulse Resp BP Pulse Ox 99.1 F 76 20 155/91 H 100 10/25/19 10:00 10/25/19 09:52 10/25/19 09:52 10/25/19 09:52 10/25/19 09:52 10/25/19 12:53 Vital signs stable - Diagnostic Test Radiology reviewed: Image reviewed, Reports reviewed Radiology results interpreted by me: 10/25/19 12:54 CT scan of head shows no evidence of stroke and chronic sinusitis noted. No other acute abnormality. Discharge - Discharge Clinical Impression: Sinus headache, Acute pharyngitis, Suspected COVID-19 virus infection, Nausea and vomiting Condition: Stable Disposition: HOME, SELF-CARE Instructions: Vomiting ([facility]), Antinausea Medication ([facility]) Additional Instructions: Sinusitis You have sinusitis, an infection of the sinus cavities of the face. The sinuses are air-filled chambers which open into the inside of the nose. Bacteria and pus fill a sinus, causing pain, drainage, and fever. Sinusitis is treated with antibiotics. Often, expectorants (to thin the sinus mucous) or decongestants (to reduce swelling) are prescribed as well. Healing requires seven to 10 days. Avoid chemical fumes, pollens, dusts, and smoke (especially cigarette smoke). Keep the air humidified in your bedroom and work area and take plenty of liquids by mouth. This condition can be serious if the infection spreads. If your symptoms worsen, or if you develop severe headache, high fever, stiff neck, or a rash, you must call the doctor or return for re-evaluation. Recommend [id number] Advil Cold and Sinus as needed for sinus headaches and congestion. Prescriptions: Amoxicillin 1 tab PO TID #30 tab Referrals: JOSE CANDELARIO MD [Primary Care Provider] - Follow up as needed I personally performed the services described in the documentation, reviewed and edited the documentation which was dictated to the scribe in my presence, and it accurately records my words and actions.
[2019-10-25 13:30] VITALS: BP 150/90
== END 2019-10-25 13:30 | disposition home or self-care (01) ==
LOC: ER 09:43
DX: J02.9 Acute pharyngitis, unspecified (principal); R11.2 Nausea with vomiting, unspecified; R51 Headache; Z20.828 Contact with and (suspected) exposure to other viral communicable diseases
CPT/HCPCS: 70450; 87070; 87880; 99284

== ENCOUNTER 2019-11-05 00:39 | Emergency (ER) | payer SELFPAY ==
[2019-11-05] MEDS ORDERED: LORAZEPAM 1 MG TABLET PO ONE (01:14)
--- NOTE | 2019-11-05 01:15 | ER Document Report ---
ED Medical Screen (RME) - General Mode of Arrival: Ambulatory Information source: Patient TRAVEL OUTSIDE OF THE [place] IN LAST 30 DAYS: No - Related Data Home Medications: lorazepam <ADDIS HUBBARD - Last Filed: 11/05/19 01:16> <MAX PINEDO JR - Last Filed: 11/05/19 02:38> - General Chief Complaint: Alcohol Withdrawl Stated Complaint: BODY PAIN Time Seen by Provider: 11/05/19 01:12 Primary Care Provider: JOSE CANDELARIO MD [Primary Care Provider] - Follow up as needed Notes: Patient presents reporting alcohol withdrawal. Patient typically drinks 1/5 of alcohol a day and last use was over 13 hours ago. Patient states that he has had chest pain that he describes as a tightness and has had difficulty breathing. Patient reports nausea and vomiting today and reports that he had blood in his emesis. Patient visibly tremulous and complains of anxiety in triage. I have greeted and performed a rapid initial assessment of this patient. A comprehensive ED assessment and evaluation of the patient, analysis of test results and completion of the medical decision making process will be conducted by additional ED providers. (ADDIS HUBBARD) - Related Data Allergies/Adverse Reactions: No Known Allergies Allergy (Verified 10/25/19 10:35) Past Medical History - Social History Frequency of alcohol use: fifth a day Drug Abuse: None Renal/ Medical History: Denies: Hx Peritoneal Dialysis Psychiatric Medical History: Reports: Hx Anxiety, Hx Attention Deficit Hyperactivity Disorder Denies: Hx Depression Past Surgical History: Reports: Hx Oral Surgery - wisdom teeth - Immunizations Hx Diphtheria, Pertussis, Tetanus Vaccination: Yes <ADDIS HUBBARD - Last Filed: 11/05/19 01:16> Physical Exam - Respiratory Respiratory status: No respiratory distress Chest status: Tender Breath sounds: Normal - Cardiovascular Rhythm: Regular. No: Tachycardia Heart sounds: S1 appreciated, S2 appreciated <ADDIS HUBBARD - Last Filed: 11/05/19 01:16> - Vital signs Vitals: Temp Pulse Resp BP Pulse Ox 98.0 F 92 18 179/98 H 98 11/05/19 00:43 11/05/19 00:43 11/05/19 00:43 11/05/19 00:43 11/05/19 00:43 Course - Laboratory Result Diagrams: 11/05/19 02:15 11/05/19 02:15 <MAX PINEDO JR - Last Filed: 11/05/19 02:38> - Vital Signs Vital signs: Temp Pulse Resp BP Pulse Ox 98.0 F 92 18 179/98 H 98 11/05/19 00:43 11/05/19 00:43 11/05/19 00:43 11/05/19 00:43 11/05/19 00:43 - Laboratory Laboratory results interpreted by me: 11/05/19 02:15 WBC 13.0 H RDW 14.1 H [place] % (Auto) 13.2 H Absolute Monos (auto) 1.7 H Doctor's Discharge <ADDIS HUBBARD - Last Filed: 11/05/19 01:16> <MAX PINEDO JR - Last Filed: 11/05/19 02:38> - Discharge Referrals: JOSE CANDELARIO MD [Primary Care Provider] - Follow up as needed
[2019-11-05] MEDS ORDERED: ONDANSETRON HCL INJ/PF 4 MG/2 ML SDV IV ONE (01:18)
[2019-11-05] MEDS ORDERED: LORAZEPAM INJ 2 MG/1 ML VIAL IV ONE (01:18)
[2019-11-05] MEDS ORDERED: CEFTRIAXONE INJ 250 MG VIAL IM ONE (01:25)
[2019-11-05 01:53] LABS: APPEARANCE,URINE CLEAR; BILIRUBIN,URINE NEGATIVE (NEGATIVE); COLOR,URINE COLORLESS; GLUCOSE, URINE NEGATIVE (NEGATIVE); KETONES,URINE NEGATIVE (NEGATIVE); LEUKOCYTE ESTERASE,URINE NEGATIVE (NEGATIVE); NITRITE,URINE NEGATIVE (NEGATIVE); PROTEIN,URINE NEGATIVE (NEGATIVE); URINE SPECIFIC GRAVITY 1.002; UROBILINOGEN,URINE NEGATIVE mg/dL (<2.0)
[2019-11-05 02:33] LABS: ABSOLUTE BASOPHILS # (AUTO) 0.1 10^3/uL (0.0-0.2); ABSOLUTE EOSINOPHILS # (AUTO) 0.1 10^3/uL (0.0-0.6); ABSOLUTE LYMPHOCYTES (AUTO) 3.2 10^3/uL (0.5-4.7); ABSOLUTE MONOCYTES (AUTO) 1.7 10^3/uL (0.1-1.4); BASOPHILS % (AUTO) 0.6 % (0-2); EOSINOPHILS % (AUTO) 0.6 % (0-6); HEMOGLOBIN 16.4 g/dL (13.5-17.0); LYMPHOCYTES % (AUTO) 24.5 % (13-45); MEAN CORPUSCULAR HEMOGLOBIN 31.7 pg (27.0-33.4); MEAN CORPUSCULAR HGB CONC 35.6 g/dL (32.0-36.0); MEAN CORPUSCULAR VOLUME 89 fl (80-97); MONOCYTES % (AUTO) 13.2 % (3-13); PLATELET COUNT 244 10^3/uL (150-450); RED BLOOD COUNT 5.17 10^6/uL (4.35-5.55); RED CELL DISTRIBUTION WIDTH 14.1 % (11.5-14.0); SEGMENTED NEUTROPHILS % (AUTO) 61.1 % (42-78); TOTAL CELLS COUNTED % (AUTO) 100 %
[2019-11-05 02:40] LABS: INTERNATIONAL RATION (INR) 0.91; PROTHROMBIN TIME 12.5 SEC (11.4-15.4)
[2019-11-05 02:41] LABS: PARTIAL THROMBOPLASTIN TIME 27.9 SEC (23.5-35.8)
--- NOTE | 2019-11-05 02:42 | ER Document Report ---
ED Substance Abuse / Acc. OD - General Chief Complaint: Alcohol Withdrawl Stated Complaint: BODY PAIN Time Seen by Provider: 11/05/19 01:12 Primary Care Provider: JOSE CANDELARIO MD [Primary Care Provider] - Follow up as needed Mode of Arrival: Ambulatory Information source: Patient Notes: 11/05/19 00:59 - ED Nursing Note by KIKOWINIFREDZAIDA Acct Num: [id number] : 1985 Patient Age: 34 pt presents via pov w/ c/o of possible alcohol withdraw. pt states he normally drinks "a fifth a day' with last drink being around lunch time on 11/04/2019. pt presents with body aches, chills, nausea, vomiting. pt aox4, with some difficulty breathing. ED Medical Screen ([facility]) - General Mode of Arrival: Ambulatory Information source: Patient TRAVEL OUTSIDE OF THE [place] IN LAST 30 DAYS: No - Related Data Home Medications: lorazepam <ADDIS HUBBARD - Last Filed: 11/05/19 01:16> <MAX PINEDO JR - Last Filed: 11/05/19 02:38> - General Chief Complaint: Alcohol Withdrawl Stated Complaint: BODY PAIN Time Seen by Provider: 11/05/19 01:12 Primary Care Provider: JOSE CANDELARIO MD [Primary Care Provider] - Follow up as needed Notes: Patient presents reporting alcohol withdrawal. Patient typically drinks 1/5 of alcohol a day and last use was over 13 hours ago. Patient states that he has had chest pain that he describes as a tightness and has had difficulty breathing. Patient reports nausea and vomiting today and reports that he had blood in his emesis. Patient visibly tremulous and complains of anxiety in triage. MY NOTES 34-year-old male homosexual with complaints of STD and usually drinks for the last 3 weeks 1/5 of vodka a day. For 8 years he has been drinking vodka on a every other day or every week binge. His last drink was over 24 hours ago and is somewhat tremulous. He was told by his ex boyfriend that he has chlamydia. Patient has been complaining of 2 weeks of right ear pain and right cheek and jaw pain and denies any trauma or fever or chills and has been taking 1 weeks worth of amoxicillin as per his PMD. Patient smokes 1 pack of cigarettes per day since he was 14 years of age. He has been drinking vodka for the last 8 years. He drinks no other alcohol beverage. He denies any GERD skin rash but does admit to right upper quadrant tenderness on palpation. He denies any diarrhea or constipation. He denies any dysuria. Patient reports he drinks cheap vodka. TRAVEL OUTSIDE OF THE [place] IN LAST 30 DAYS: No - HPI Patient complains to provider of: Alcohol abuse, Alcohol withdrawal Onset: This morning Onset/Duration: Sudden, Persistent, Worse Quality of pain: Achy Severity: Moderate Pain Level: 2 Situational problems related to: Significant other - Related Data Allergies/Adverse Reactions: No Known Allergies Allergy (Verified 10/25/19 10:35) Home Medications: lorazepam Past Medical History - General Information source: Patient - Social History Smoking Status: Current Every Day Smoker Cigarette use (# per day): Yes Chew tobacco use (# tins/day): No Smoking Education Provided: Yes Frequency of alcohol use: Heavy Drug Abuse: None Lives with: Family Family History: Reviewed & Not Pertinent Patient has suicidal ideation: No Patient has homicidal ideation: No Renal/ Medical History: Denies: Hx Peritoneal Dialysis Psychiatric Medical History: Reports: Hx Anxiety, Hx Attention Deficit Hyperactivity Disorder Denies: Hx Depression Past Surgical History: Reports: Hx Oral Surgery - wisdom teeth - Immunizations Hx Diphtheria, Pertussis, Tetanus Vaccination: Yes Review of Systems - Review of Systems Constitutional: See HPI, Weakness, Recent illness. denies: Chills, Diaphoresis, Weight gain, Weight loss EENT: See HPI, Ear pain, Nose pain, Nose congestion, Sinus pressure, Sinus discharge. denies: Nose discharge, Throat pain, Difficulty swallowing, Throat swelling, Mouth pain, Mouth swelling Cardiovascular: No symptoms reported Respiratory: No symptoms reported Gastrointestinal: See HPI, Abdominal pain. denies: Abdomen distended, Vomiting, Constipation, Blood streaked bowels, Black stools, Last bowel movement Genitourinary: No symptoms reported. denies: Frequency, Flank pain, Hematuria Male Genitourinary: No symptoms reported Musculoskeletal: No symptoms reported Skin: No symptoms reported Hematologic/Lymphatic: No symptoms reported Neurological/Psychological: See HPI, Anxiety, Weakness, Tingling. denies: Depression, Sensory change, Loss of power, Paralysis, Seizure Physical Exam - Vital signs Vitals: Temp Pulse Resp BP Pulse Ox 98.0 F 92 18 179/98 H 98 11/05/19 00:43 11/05/19 00:43 11/05/19 00:43 11/05/19 00:43 11/05/19 00:43 Interpretation: Hypertensive, Tachycardic - General General appearance: Anxious - HEENT Head: Normocephalic, Atraumatic Eyes: Normal Pupils: PERRL Sinus: Abnormal, Maxillary Nasal: Swelling Mouth/Lips: Normal Mucous membranes: Normal Pharynx: Erythema Neck: Normal - Respiratory Respiratory status: No respiratory distress Chest status: Nontender Breath sounds: Normal Chest palpation: Normal - Cardiovascular Rhythm: Regular Heart sounds: Normal auscultation Murmur: No - Abdominal Inspection: Normal Distension: No distension Bowel sounds: Normal Tenderness: Tender Organomegaly: No organomegaly - Rectal Prostate: Other - deferred - Genitourinary Scrotum: Other - deferred - Back Back: Normal - Extremities General upper extremity: Normal inspection General lower extremity: Normal inspection - Neurological Neuro grossly intact: Yes Cognition: Normal Orientation: AAOx4 [place] Coma Scale Eye Opening: Spontaneous [place] Coma Scale Verbal: Oriented [place] Coma Scale Motor: Obeys Commands [place] Coma Scale Total: 15 Speech: Normal Motor strength normal: LUE, RUE, LLE, RLE Sensory: Normal - Psychological Associated symptoms: Anxious - Skin Skin Temperature: Warm Skin Moisture: Dry Course - Vital Signs Vital signs: Temp Pulse Resp BP Pulse Ox 98.0 F 92 23 H 157/98 H 96 11/05/19 00:43 11/05/19 00:43 11/05/19 05:01 11/05/19 05:01 11/05/19 05:01 - Laboratory Result Diagrams: 11/05/19 02:15 11/05/19 02:15 Laboratory results interpreted by me: 11/05/19 11/05/19 02:15 02:15 WBC 13.0 H RDW 14.1 H [place] % (Auto) 13.2 H Absolute Monos (auto) 1.7 H Sodium 136.2 L Chloride 96 L Carbon Dioxide 21 L Glucose 74 L 11/05/19 05:39 STD not detected - EKG Interpretation by [place] EKG shows normal: Sinus rhythm Rate: Normal Rhythm: NSR - With [address] elevation and no ST depression and no T wave elevation and no T wave depression and axis within normal limits and this EKG was read by myself. Discharge - Discharge Clinical Impression: Alcohol abuse, Exposure to STD Alcohol dependence with withdrawal Qualifiers: Complication of substance-induced condition: uncomplicated Qualified Code(s): F10.230 - Alcohol dependence with withdrawal, uncomplicated Condition: Good Disposition: HOME, SELF-CARE Additional Instructions: Follow-up with personal doctor this week return to ER as needed take medicines act as directed. Try to stop drinking on a graduated basis try not to stop cold turkey if possible. Take your medications for STD and follow-up with health department or with personal doctor about this within 1 month. May need to get HIV and RPR for syphilis should / if symptoms persist. Prescriptions: Lorazepam [Ativan 0.5 mg Tablet] 0.5 mg PO BID #10 tab Doxycycline Monohydrate 100 mg PO BID #20 capsule Forms: Return to Work Referrals: JOSE CANDELARIO MD [Primary Care Provider] - Follow up as needed
[2019-11-05] MEDS ORDERED: CEFTRIAXONE INJ 1000 MG VIAL IV ONE (02:44)
[2019-11-05 02:48] LABS: ALCOHOL 91 mg/dL (NONE DETECTED); ALKALINE PHOSPHATASE 91 U/L (38-126); ASPARTATE AMINO TRANSFERASE 59 U/L (17-59); BILIRUBIN,DIRECT 0.3 mg/dL (0.0-0.4); BILIRUBIN,TOTAL 0.8 mg/dL (0.2-1.3); BLOOD UREA NITROGEN 8 mg/dL (7-20); CALCIUM 10.1 mg/dL (8.4-10.2); GLUCOSE 74 mg/dL (75-110); POTASSIUM 4.1 mmol/L (3.6-5.0); TOTAL PROTEIN 8.1 g/dL (6.3-8.2)
[2019-11-05 02:52] LABS: ANION GAP 19 (5-19); CARBON DIOXIDE 21 mmol/L (22-30); CHLORIDE 96 mmol/L (98-107)
--- NOTE | 2019-11-05 03:05 | RADIOLOGY REPORT (SQ) ---
EXAM DESCRIPTION: XR CHEST 1 VIEW COMPLETED DATE/TME: 11/05/2019 01:13 CLINICAL HISTORY: 34 years, Male, cp COMPARISON: 10/25/2019 chest NUMBER OF VIEWS: 1 TECHNIQUE: Portable chest LIMITATIONS: None. FINDINGS: Heart size is normal. Lungs are clear. No pneumothorax IMPRESSION: Negative chest copyright 2011 [employer]- All Rights Reserved
[2019-11-05 05:16] LABS: CHLAM PCR NOT DETECTED (NOT DETECT)
[2019-11-05 06:15] VITALS: BP 155/97
--- NOTE | 2019-11-05 07:19 | EKG REPORT ---
SEVERITY:- NORMAL ECG - SINUS RHYTHM INTERMITENT ABBERRANT CONDUCTION : Confirmed by: Isabelle Acharya 05-Nov-2019 07:18:33
== END 2019-11-05 06:07 | disposition home or self-care (01) ==
LOC: ER 00:39
DX: F10.230 Alcohol dependence with withdrawal, uncomplicated (principal); R06.00 Dyspnea, unspecified; R07.89 Other chest pain; K92.0 Hematemesis; H92.01 Otalgia, right ear; R51 Headache; R68.84 Jaw pain; R10.811 Right upper quadrant abdominal tenderness; R53.1 Weakness; J34.89 Other specified disorders of nose and nasal sinuses; R09.81 Nasal congestion; R10.9 Unspecified abdominal pain; R20.2 Paresthesia of skin; F17.210 Nicotine dependence, cigarettes, uncomplicated; F41.9 Anxiety disorder, unspecified; Z79.899 Other long term (current) drug therapy; Z20.2 Contact with and (suspected) exposure to infections with a predominantly sexual mode of transmission
CPT/HCPCS: 93005; 99285; 96375; 96365; 36415; 80307; 83690; 85025; 85610; 85730; 80053; 81001; 84484; 87491; 87591; 71045; 93010; J2060; J0696; J2405